=== PATIENT | female | born 1980 | race Caucasian/White ===

== ENCOUNTER → 2016-05-22 | Outpatient (CLI) | payer BC, OTHER ==
[2016-05-22 12:57] LABS: BASO % 0.5 % (0.0-1.0); EOS # 0.1 K/mm3 (0.0-0.50); EOS % 1.7 % (0.0-3.0); LARGE UNSTAINED CELL # 0.1 K/mm3 (0.0-0.4); LYMPH # 1.4 K/mm3 (1.5-4.5); LYMPH % 32.2 % (24.0-44.0); MEAN CORPUSCULAR HEMOGLOBIN 29.7 pg (27.0-33.0); MEAN CORPUSCULAR HGB CONC 34.8 g/dl (32.0-36.5); MEAN CORPUSCULAR VOLUME 85.6 fl (80.0-96.0); MONO # 0.2 K/mm3 (0.0-0.8); MONO % 4.4 % (0.0-5.0); NEUTROPHILS # 2.6 K/mm3 (1.8-7.7); NEUTROPHILS % 59.1 % (36.0-66.0); PLATELET COUNT, AUTOMATED 227 k/mm3 (150-450); RED CELL DISTRIBUTION WIDTH 12.1 % (11.5-14.5); WHITE BLOOD COUNT 4.3 K/mm3 (4.0-10.0)
[2016-05-22 13:57] LABS: ALBUMIN 4.1 GM/DL (3.2-5.2); ALBUMIN/GLOBULIN RATIO 1.41 (1.00-1.93); ALKALINE PHOSPHATASE 88 U/L (45-117); ALT/SGPT 26 U/L (12-78); ANION GAP 9 MEQ/L (8-16); AST/SGOT 12 U/L (15-37); BILIRUBIN,TOTAL 0.5 MG/DL (0.2-1.0); BLOOD UREA NITROGEN 8 MG/DL (7-18); CALCIUM LEVEL 9.2 MG/DL (8.5-10.1); CARBON DIOXIDE LEVEL 28 MEQ/L (21-32); CHLORIDE LEVEL 103 MEQ/L (98-107); CREATININE FOR GFR 0.73 MG/DL (0.55-1.02); GLOMERULAR FILTRATION RATE > 60.0 (>60); GLUCOSE, FASTING 78 MG/DL (70-105); POTASSIUM SERUM 3.9 MEQ/L (3.5-5.1); SODIUM LEVEL 140 MEQ/L (136-145)
== END | disposition home or self-care (01) ==
LOC: M LAB 12:20
PROVIDERS: ATTEND Family Medicine
DX: E66.09 Other obesity due to excess calories (principal); F41.1 Generalized anxiety disorder

== ENCOUNTER 2017-05-08 16:51 | Emergency (ER) | payer BC, OTHER ==
[2017-05-08] MEDS: MORPHINE 2 MG/ML 1ML SYRINGE IV (17:32)
[2017-05-08] MEDS: ONDANSETRON 4MG/2ML VIAL (J2405) IV (17:32)
[2017-05-08] MEDS: NS 1,000 ML IV (17:32)
[2017-05-08 17:46] LABS: ALBUMIN/GLOBULIN RATIO 1.08 (1.00-1.93); ALKALINE PHOSPHATASE 72 U/L (45-117); ALT/SGPT 22 U/L (12-78); ANION GAP 10 MEQ/L (8-16); AST/SGOT 13 U/L (7-37); BILIRUBIN,DIRECT 0.1 MG/DL (0.0-0.2); BILIRUBIN,TOTAL 0.6 MG/DL (0.2-1.0); BLOOD UREA NITROGEN 10 MG/DL (7-18); CARBON DIOXIDE LEVEL 25 MEQ/L (21-32); CHLORIDE LEVEL 104 MEQ/L (98-107); CREATININE FOR GFR 0.86 MG/DL (0.55-1.02); GLOMERULAR FILTRATION RATE > 60.0 (>60); GLUCOSE, FASTING 94 MG/DL (70-105); POTASSIUM SERUM 3.6 MEQ/L (3.5-5.1); SODIUM LEVEL 139 MEQ/L (136-145); TOTAL PROTEIN 7.7 GM/DL (6.4-8.2)
[2017-05-08 18:04] LABS: BASO % 0.5 % (0.0-1.0); EOS # 0.1 10^3/uL (0.0-0.50); EOS % 1.2 % (0.0-3.0); IMMATURE GRANULOCYTE % 0.4 % (0-0); LYMPH # 1.7 10^3/uL (1.5-4.5); LYMPH % 29.5 % (24.0-44.0); MEAN CORPUSCULAR HEMOGLOBIN 30.2 pg (27.0-33.0); MEAN CORPUSCULAR HGB CONC 35.3 g/dl (32.0-36.5); MEAN CORPUSCULAR VOLUME 85.6 fl (80.0-96.0); MONO # 0.3 10^3/uL (0.0-0.8); NEUTROPHILS # 3.5 10^3/uL (1.8-7.7); NEUTROPHILS % 62.4 % (36.0-66.0); PLATELET COUNT, AUTOMATED 315 10^3/uL (150-450); RED CELL DISTRIBUTION WIDTH 11.8 % (11.5-14.5); WHITE BLOOD COUNT 5.6 10^3/uL (4.0-10.0)
[2017-05-08 18:23] LABS: CALCIUM OXALATE CRYSTALS RFX SMALL; KETONE, URINE AUTO RFX TRACE mg/dL (NEGATIVE); LEUKOCYTE ESTERASE UR AUTO RFX NEGATIVE (NEGATIVE); MUCUS, URINE RFX SMALL (NEGATIVE); NITRITE, URINE AUTO RFX NEGATIVE (NEGATIVE); RBC, URINE AUTO RFX TNTC /HPF (0-3); SPECIFIC GRAVITY UR AUTO RFX 1.009 (1.002-1.035); SQUAM EPITHELIAL CELL UR AURFX 2 /HPF (0-6); WBC, URINE AUTO RFX 3 /HPF (0-3)
[2017-05-08] MEDS: OXYCODONE/APAP 5MG/325MG(BULK FOR ED) 1 TABLET PO (19:30)
[2017-05-08] MEDS: TAMSULOSIN 0.4 MG CAP PO (19:30)
[2017-05-08] MEDS: CIPROFLOXACIN 500 MG TAB PO (19:30)
== END 2017-05-08 19:34 | disposition home or self-care (01) ==
LOC: M ED 16:51
DX: N20.1 Calculus of ureter (principal); N39.0 Urinary tract infection, site not specified; N13.30 Unspecified hydronephrosis; F41.9 Anxiety disorder, unspecified; F33.9 Major depressive disorder, recurrent, unspecified; Z79.899 Other long term (current) drug therapy; Z87.442 Personal history of urinary calculi; Z87.448 Personal history of other diseases of urinary system
CPT/HCPCS: J2405

== ENCOUNTER 2017-05-16 08:24 | Day surgery (SDC) | payer BC, OTHER ==
[2017-05-16] MEDS: ONDANSETRON 4MG/2ML VIAL (J2405) IV (08:57)
[2017-05-16] MEDS: KETOROLAC 30 MG/ML VIAL (J1885) IV (08:57)
[2017-05-16 08:59] LABS: BASO % 0.5 % (0.0-1.0); EOS # 0.1 10^3/uL (0.0-0.50); EOS % 1.1 % (0.0-3.0); HEMATOCRIT 38.8 % (36.0-47.0); IMMATURE GRANULOCYTE % 0.3 % (0-0); LYMPH % 15.4 % (24.0-44.0); MEAN CORPUSCULAR HEMOGLOBIN 29.8 pg (27.0-33.0); MEAN CORPUSCULAR HGB CONC 33.5 g/dl (32.0-36.5); MONO # 0.5 10^3/uL (0.0-0.8); MONO % 8.3 % (0.0-5.0); NEUTROPHILS # 4.9 10^3/uL (1.8-7.7); NEUTROPHILS % 74.4 % (36.0-66.0); PLATELET COUNT, AUTOMATED 202 10^3/uL (150-450); RED BLOOD COUNT 4.36 10^6/uL (4.00-5.40); RED CELL DISTRIBUTION WIDTH 11.6 % (11.5-14.5); WHITE BLOOD COUNT 6.5 10^3/uL (4.0-10.0)
[2017-05-16 09:04] LABS: KETONE, URINE AUTO RFX NEGATIVE (NEGATIVE); LEUKOCYTE ESTERASE UR AUTO RFX NEGATIVE (NEGATIVE); MUCUS, URINE RFX SMALL (NEGATIVE); NITRITE, URINE AUTO RFX NEGATIVE (NEGATIVE); RBC, URINE AUTO RFX 6 /HPF (0-3); SPECIFIC GRAVITY UR AUTO RFX 1.023 (1.002-1.035); SQUAM EPITHELIAL CELL UR AURFX 5 /HPF (0-6); WBC, URINE AUTO RFX 2 /HPF (0-3)
[2017-05-16 09:15] LABS: CONTROL LINE HCG INT CTR LINE PRESENT; HCG, SERUM QUALITATIVE NEGATIVE (NEGATIVE)
[2017-05-16 09:18] LABS: ALBUMIN 4.1 GM/DL (3.2-5.2); ALBUMIN/GLOBULIN RATIO 1.17 (1.00-1.93); ALKALINE PHOSPHATASE 69 U/L (45-117); ALT/SGPT 21 U/L (12-78); ANION GAP 8 MEQ/L (8-16); AST/SGOT 14 U/L (7-37); BILIRUBIN,TOTAL 0.4 MG/DL (0.2-1.0); BLOOD UREA NITROGEN 13 MG/DL (7-18); CALCIUM LEVEL 8.9 MG/DL (8.5-10.1); CARBON DIOXIDE LEVEL 29 MEQ/L (21-32); CHLORIDE LEVEL 101 MEQ/L (98-107); CREATININE FOR GFR 1.31 MG/DL (0.55-1.02); GLOMERULAR FILTRATION RATE 49.5 (>60); GLUCOSE, FASTING 114 MG/DL (70-105); POTASSIUM SERUM 3.8 MEQ/L (3.5-5.1); SODIUM LEVEL 138 MEQ/L (136-145); TOTAL PROTEIN 7.6 GM/DL (6.4-8.2)
[2017-05-16] MEDS ORDERED: LIDOCAINE 2% INJ 100 MG/5 ML SDV (FOR ANES.) As Ordered (14:32)
[2017-05-16] MEDS ORDERED: fentaNYL 100 MCG/2 ML INJECTION (J3010) As Ordered (14:32)
[2017-05-16] MEDS ORDERED: METOCLOPRAMIDE INJ 10MG/2ML VIAL (J2765) As Ordered (14:32)
[2017-05-16] MEDS ORDERED: ONDANSETRON 4MG/2ML VIAL (J2405) As Ordered (14:32)
[2017-05-16] MEDS ORDERED: MIDAZOLAM INJ 2 MG/2 ML VIAL (J2250) As Ordered (14:32)
[2017-05-16] MEDS ORDERED: PROPOFOL 200 MG/20 ML VIAL As Ordered (14:32)
[2017-05-16] MEDS: LevoFLOXacin(LEVAQUIN)500 MG/100 ML BAG (J1956) As Ordered (14:40)
[2017-05-16] MEDS: CONRAY-60 60% 50ML VIAL (Q9961) As Ordered (14:40)
[2017-05-16] MEDS ORDERED: ANEXSIA, NORCO 7.5MG/325MG TABLET(HYDROCODONE/APAP) PO (15:15)
[2017-05-16] MEDS ORDERED: ONDANSETRON 4MG/2ML VIAL (J2405) IV (15:30)
[2017-05-16] MEDS ORDERED: MEPERIDINE INJ 25 MG/ML VIAL (J2175) IV (15:30)
[2017-05-16] MEDS ORDERED: METOCLOPRAMIDE INJ 10MG/2ML VIAL (J2765) IV (15:30)
[2017-05-16] MEDS ORDERED: fentaNYL 100 MCG/2 ML INJECTION (J3010) IV (15:30)
[2017-05-16] MEDS: LR 1,000 ML IV (15:30)
[2017-05-16] MEDS: PERCOCET 5MG/325MG TAB PO (15:34)
[2017-05-16] MEDS: oxyBUTYnin 5 MG TAB PO (15:34)
[2017-05-16] MEDS ORDERED: BACTRIM 160MG/800MG DS TAB PO (21:00)
== END 2017-05-16 17:20 | disposition home or self-care (01) ==
LOC: M ED 08:24 → M SDC 12:20 → M MS5PR 16:02 → M SDC 17:20
DX: N20.1 Calculus of ureter (principal); I10 Essential (primary) hypertension; E66.9 Obesity, unspecified
CPT/HCPCS: 52352

== ENCOUNTER → 2017-05-25 | Outpatient (REF) | payer OTHER ==
[2017-05-25 19:07] LABS: APPEARANCE, URINE HAZY (CLEAR); BACTERIA, URINE AUTO 1+ (NEGATIVE); BILIRUBIN, URINE AUTO NEGATIVE (NEGATIVE); BLOOD, URINE BLOOD 2+ (NEGATIVE); CALCIUM OXALATE CRYSTALS SMALL; COLOR, URINE YELLOW (YELLOW); GLUCOSE, URINE (UA) AUTO NEGATIVE (NEGATIVE); KETONE, URINE AUTO NEGATIVE (NEGATIVE); LEUKOCYTE ESTERASE, URINE AUTO TRACE (NEGATIVE); MUCUS, URINE SMALL (NEGATIVE); NITRITE, URINE AUTO NEGATIVE (NEGATIVE); PROTEIN, URINE AUTO NEGATIVE (NEGATIVE); RBC, URINE AUTO 18 /HPF (0-3); SPECIFIC GRAVITY URINE AUTO 1.018 (1.002-1.035); SQUAMOUS EPITHELIAL CELL UR AU 2 /HPF (0-6); UROBILINOGEN, URINE AUTO 0.2 mg/dL (0.0-2.0); WBC, URINE AUTO 7 /HPF (0-3)
== END ==
LOC: M SMT 17:12
DX: N20.0 Calculus of kidney (principal)

== ENCOUNTER → 2017-05-26 | Outpatient (CLI) | payer OTHER, BC ==
[2017-05-26 20:01] LABS: HEMATOCRIT 38.1 % (36.0-47.0); HEMOGLOBIN 12.9 g/dl (12.0-16.0); MEAN CORPUSCULAR HEMOGLOBIN 29.9 pg (27.0-33.0); MEAN CORPUSCULAR HGB CONC 33.9 g/dl (32.0-36.5); MEAN CORPUSCULAR VOLUME 88.4 fl (80.0-96.0); PLATELET COUNT, AUTOMATED 269 10^3/uL (150-450); RED BLOOD COUNT 4.31 10^6/uL (4.00-5.40); RED CELL DISTRIBUTION WIDTH 11.7 % (11.5-14.5); WHITE BLOOD COUNT 5.7 10^3/uL (4.0-10.0)
[2017-05-26 20:07] LABS: ANION GAP 8 MEQ/L (8-16); BLOOD UREA NITROGEN 10 MG/DL (7-18); CALCIUM LEVEL 8.9 MG/DL (8.5-10.1); CARBON DIOXIDE LEVEL 26 MEQ/L (21-32); CHLORIDE LEVEL 106 MEQ/L (98-107); CREATININE FOR GFR 0.71 MG/DL (0.55-1.02); GLOMERULAR FILTRATION RATE > 60.0 (>60); GLUCOSE, FASTING 81 MG/DL (70-105); POTASSIUM SERUM 4.2 MEQ/L (3.5-5.1); SODIUM LEVEL 140 MEQ/L (136-145)
[2017-05-26 20:14] LABS: INR 0.97; PARTIAL THROMBOPLASTIN TIME 25.7 SECONDS (26.8-37.9)
== END ==
LOC: M WUC 16:14
DX: N20.0 Calculus of kidney (principal)
CPT/HCPCS: 80048

== ENCOUNTER 2017-05-27 09:57 | Day surgery (SDC) | payer BC, OTHER ==
[2017-05-27] MEDS ORDERED: MIDAZOLAM INJ 2 MG/2 ML VIAL (J2250) As Ordered (09:58)
[2017-05-27] MEDS ORDERED: LIDOCAINE 2% INJ 100 MG/5 ML SDV (FOR ANES.) As Ordered (09:58)
[2017-05-27] MEDS ORDERED: fentaNYL 100 MCG/2 ML INJECTION (J3010) As Ordered ×2 (09:58→14:34)
[2017-05-27] MEDS ORDERED: PROPOFOL 200 MG/20 ML VIAL As Ordered (09:58)
[2017-05-27] MEDS: LR 1,000 ML IV (11:24)
[2017-05-27 12:08] LABS: CONTROL LINE UCG INT CTR LINE PRESENT; URINE PREG TEST NEGATIVE (NEGATIVE)
== END 2017-05-27 14:53 | disposition home or self-care (01) ==
LOC: M SDC 14:53
DX: N20.0 Calculus of kidney (principal); F41.9 Anxiety disorder, unspecified; F32.9 Major depressive disorder, single episode, unspecified; K21.9 Gastro-esophageal reflux disease without esophagitis; R06.83 Snoring; Z79.899 Other long term (current) drug therapy
CPT/HCPCS: 50590

== ENCOUNTER 2018-06-12 19:36 | Inpatient (IN) | payer BC, OTHER ==
[~2018-06-12] VITALS: Ht 149.9 cm; Wt 78.8 kg
[~2018-06-12 19:36] MED LIST: AMBI5TAB PO; CIPR-249 PO; FLOM0.4C39 PO; FLUO20CA19 PO; HYDR-3716 PO; OXYB5TAB10 PO; PERC5TAB12 PO; PROP40TA62 PO; PROZ20CA11 PO; SULF1TAB93 PO; ZOLP5TAB PO
[2018-06-12] MEDS ORDERED: CHARCOAL ACTIVATED LIQUID 25 GM/120 ML BTL As Ordered ONE (19:40)
[2018-06-12] MEDS ORDERED: NS 1,000 ML IV ONE (19:45)
[2018-06-12] MEDS ORDERED: CHARCOAL ACTIVATED LIQUID 25 GM/120 ML BTL PO ONE (19:45)
[2018-06-12] MEDS ORDERED: BUPR150T3 PO (19:48)
[2018-06-12 19:58] LABS: VENOUS BASE EXCESS -0.4 (-2.0-2.0); VENOUS HCO3 23.3 MEQ/L (23.0-27.0); VENOUS PARTIAL PRESSURE CO2 35.9 mmHg (38.0-50.0); VENOUS PARTIAL PRESSURE O2 88.5 mmHg (30.0-50.0); VENOUS PH 7.431 UNITS (7.330-7.430); VENOUS STANDARD HCO3 24.1 MEQ/L; VENOUS TOTAL CO2 24.4 MEQ/L (24.0-28.0)
[2018-06-12 20:05] LABS: BASO % 0.4 % (0.0-1.0); EOS # 0.1 10^3/uL (0.0-0.50); EOS % 1.2 % (0.0-3.0); HEMATOCRIT 40.4 % (36.0-47.0); HEMOGLOBIN 14.1 g/dl (12.0-15.5); LYMPH # 1.6 10^3/uL (1.5-4.5); LYMPH % 27.5 % (24.0-44.0); MEAN CORPUSCULAR HGB CONC 34.9 g/dl (32.0-36.5); MEAN CORPUSCULAR VOLUME 88.8 fl (80.0-96.0); MONO # 0.5 10^3/uL (0.0-0.8); MONO % 8.1 % (0.0-5.0); NEUTROPHILS # 3.6 10^3/uL (1.8-7.7); NEUTROPHILS % 62.4 % (36.0-66.0); PLATELET COUNT, AUTOMATED 241 10^3/uL (150-450); RED BLOOD COUNT 4.55 10^6/uL (4.00-5.40); WHITE BLOOD COUNT 5.7 10^3/uL (4.0-10.0)
[2018-06-12 20:18] LABS: HCG, SERUM QUALITATIVE NEGATIVE (NEGATIVE)
[2018-06-12 20:28] LABS: OSMOLALITY SERUM 285 MOSM/KG (275-295)
[2018-06-12 20:34] LABS: ACETAMINOPHEN LEVEL 9.4 UG/ML (10.0-30.0); ALBUMIN 4.1 GM/DL (3.2-5.2); ALT/SGPT 31 U/L (12-78); BILIRUBIN,DIRECT 0.1 MG/DL (0.0-0.2); BILIRUBIN,TOTAL 0.5 MG/DL (0.2-1.0); BLOOD UREA NITROGEN 14 MG/DL (7-18); CALCIUM LEVEL 8.9 MG/DL (8.5-10.1); CARBON DIOXIDE LEVEL 23 MEQ/L (21-32); CHLORIDE LEVEL 102 MEQ/L (98-107); CPK CREATINE PHOSPHOKINASE 45 U/L (26-192); CREATININE FOR GFR 0.88 MG/DL (0.55-1.30); ETHYL ALCOHOL (ETHANOL) < 0.003 % (0.000-0.010); GLOMERULAR FILTRATION RATE > 60.0 (>60); GLUCOSE, FASTING 83 MG/DL (70-100); POTASSIUM SERUM 3.6 MEQ/L (3.5-5.1); SALICYLATE LEVEL < 1.7 MG/DL (5.0-30.0); SODIUM LEVEL 137 MEQ/L (136-145)
[2018-06-12 21:49] LABS: AMPHETAMINES LEVEL URINE NEGATIVE (NEGATIVE); BARBITURATES URINE NEGATIVE (NEGATIVE); BENZODIAZEPINES URINE POSITIVE (NEGATIVE); CANNABINOIDS URINE NEGATIVE (NEGATIVE); COCAINE METABOLITE URINE NEGATIVE (NEGATIVE); METHADONE URINE NEGATIVE (NEGATIVE); OPIATES URINE NEGATIVE (NEGATIVE); PHENCYCLIDINE URINE NEGATIVE (NEGATIVE)
[2018-06-12 23:20] LABS: DIGOXIN LEVEL 0.1 NG/ML (0.5-2.0)
[2018-06-13] MEDS ORDERED: MOM 30ML SUSPENSION UDC PO PRN (13:00)
[2018-06-13] MEDS ORDERED: MAALOX 30 ML SUSP *UDC PO PRN (13:00)
[2018-06-13] MEDS ORDERED: ACETAMINOPHEN TAB 650MG DOSE (2X325MG) PO PRN (13:00)
[2018-06-13 13:42] VITALS: BP 132/76
[2018-06-13] MEDS ORDERED: clonazePAM 1 MG TAB PO PRN (15:00)
[2018-06-13] MEDS: PROPRANOLOL 20 MG TAB PO SCH (16:36)
[2018-06-13 18:00] VITALS: BP 129/85
--- NOTE | 2018-06-13 19:44 | ECGEPIP ---
Stationary ECG Study [facility] - ED Test Date: 2018-06-12 Pat Name: SANTHOSH BEE Department: Room: - Gender: F Accounting Manager Assistant Controller: [facility] : 1980 Requested By: CRISTIANA Pham Order Number: [id number] Reading MD: Joaquin Gutierres Measurements Intervals [place] Rate: 104 P: 1 IL: 136 QRS: 34 QRSD: 93 T: -16 QT: 353 QTc: 466 Interpretive Statements SINUS TACHYCARDIA NONSPECIFIC ST & T-WAVE ABNORMALITY DELAYED R WAVE PROGRESSION PROLONGED QTC ABNORMAL RHYTHM ECG NO OLD ECG FOR COMPARISON Electronically Signed On 06-13-2018 19:43:51 EST by Joaquin Gutierres
[2018-06-13] MEDS ORDERED: FLUoxetine 20 MG CAP PO SCH (21:00)
[2018-06-13] MEDS: buPROPion (WELLBUTRIN SR) 100 MG SR TAB PO SCH (21:40)
[2018-06-13] MEDS: traZODone 50 MG TAB PO PRN (21:40)
[2018-06-14 06:33] VITALS: BP 111/63
[2018-06-14] MEDS ORDERED: buPROPion **XL** TABLET 150MG (WELLBUTRIN XL) PO SCH (09:00)
[2018-06-14] MEDS: buPROPion (WELLBUTRIN SR) 100 MG SR TAB PO SCH (09:25)
[2018-06-14] MEDS: PROPRANOLOL 20 MG TAB PO SCH (09:27)
--- NOTE | 2018-06-14 10:13 | HPEPDOC ---
[facility] Medical History & Physical Date of Admission Jun 13, 2018 History and Physical PCP: Dr Franklin ATTENDING: Dr. Shree Montesinos HPI: 37yoF admitted to [facility] for unspecified depressive disorder, being medically examined today. The patient had apparently overdosed with 15 1 mg tablets of lorazepam and 25 mg tablets of zolpidem. Poison control was consulted, the patient was medically stabilized in the emergency department and transferred to [facility]. No acute medical complaints today. Patient reports she takes propranolol for anxiety. Denies any fevers, chills, weakness, fatigue, [place], CP, SOB, cough, palpitations, abdominal pain, N/V/D or changes in bowel or bladder habits. PAST MEDICAL HISTORY HISTORY OF KIDNEY STONES. Following with [facility] Urology. urinary tract infection Anxiety Pression SURGICAL HISTORY X2 2002, 2012 STENT KIDNEY LEFT SIDE 05/16/17 SOCHX: Resides in: [facility] Marital Status: Kids:2 Employment: Student counselor Tobacco use: denies ETOH: 2-3 per year Illicit Drugs: Denies IV Drug Use: Denies Tattoos done unprofessionally: Denies FAMHX: Mother: Alive, unknown Father: Alive, HTN, substance use Siblings: 1 brother Alive, substance use Children: Alive, well Unexpected deaths due to medical reasons: None. ROS: As noted in HPI, otherwise 11pt ROS of systems reviewed and remarkable only for LMP 06/06/18. PE: GEN: 37yoF, appears stated age. Well-nourished, well developed. No acute distress. Alert and oriented x 3. Pleasant, interactive. HEENT: Normocephalic, atraumatic. Pupils are equal, round, and reactive to light. Extraocular movements are intact. No nystagmus appreciated. Sclera are nonicteric. Conjunctiva without injection. Nose midline. Nasal turbinates without bogginess. EACs both patent BL. TMs both visualized and downey with good cone of light, no bulging or erythema. No facial asymmetry. Moist mucous membranes. Dentition fair. Pharynx pink and moist, no cobblestoning. Neck s upple, trachea midline. No lymphadenopathy or thyromegaly appreciated. CHEST: Regular rate and rhythm, +S1, +S2 LUNGS: Clear to auscultation bilaterally. No wheezes, rales, or rhonchi. Breathing appears symmetric and easy. Patient is speaking in full sentences. No accessory muscle use. ABD: Round, soft, non-tender, non-distended. +Bowel sounds throughout. No rebound or guarding. No costovertebral angle tenderness. EXT: Pulses 2+ bilaterally dorsalis pedis and radial. No lower extremity edema appreciated. SKIN: [place], dry, warm. Capillary refill <2sec. No rashes. NEURO: Alert and oriented x 3. Cranial nerves III-XII are intact. No focal deficits appreciated. EKG: SINUS TACHYCARDIA NONSPECIFIC ST & T-WAVE ABNORMALITY DELAYED R WAVE PROGRESSION PROLONGED QTC ABNORMAL RHYTHM ECG NO OLD ECG FOR COMPARISON Electronically Signed On 06-13-2018 19:43:51 EST by Joaquin Gutierres A&P: 37yoF admitted to [facility] for unspecified depressive disorder, 1. Psych. Plan per Psychiatry. EKG on file. 2. Prolonged QT. QTc 466. Caution advised with medications which may prolong QT. Recheck EKG today. Monitor. 3. Follow up. No Primary Care Provider. Will attempt to establish PCP on discharge. 4. History of kidney stones. Continue outpatient follow-up with [facility] urology as scheduled. 5. History of UTI. UA 06/12/18 unremarkable. 6. Staff member Tessy ERNST present throughout exam. Vital Signs Vital Signs Date Time Temp Pulse Resp B/P (MAP) Pulse Ox O2 Delivery O2 Flow Rate FiO2 06/14/18 09:27 89 136/77 06/14/18 06:33 97.0 12 06/13/18 12:00 98 Room Air Laboratory Data Labs 24H Item Value Date Time White Blood Count 5.7 10^3/uL 06/12/181948 Red Blood Count 4.55 10^6/uL 06/12/181948 Hemoglobin 14.1 g/dl 06/12/181948 Hematocrit 40.4 % 06/12/181948 Mean Corpuscular Volume 88.8 fl 06/12/181948 Mean Corpuscular Hemoglobin 31.0 pg 06/12/181948 Mean Corpuscular Hemoglobin Concent 34.9 g/dl 06/12/181948 Red Cell Distribution Width 11.8 % 06/12/181948 Platelet Count 241 10^3/uL 06/12/181948 Sodium Level 137 MEQ/L 06/12/181948 Potassium Level 3.6 MEQ/L 06/12/181948 Chloride Level 102 MEQ/L 06/12/181948 Carbon Dioxide Level 23 MEQ/L 06/12/181948 Anion Gap 12 MEQ/L 06/12/181948 Blood Urea Nitrogen 14 MG/DL 06/12/181948 Creatinine 0.88 MG/DL 06/12/181948 Glomerular Filtration Rate > 60.0 06/12/181948 Fasting Glucose 83 MG/DL 06/12/181948 Osmolality 285 MOSM/KG 06/12/181948 Lactic Acid Level 0.9 MMOL/L 06/12/181949 Calcium Level 8.9 MG/DL 06/12/181948 Total Bilirubin 0.5 MG/DL 06/12/181948 Direct Bilirubin 0.1 MG/DL 06/12/181948 Aspartate Amino Transf (AST/SGOT) 21 U/L 06/12/181948 Alanine Aminotransferase (ALT/SGPT) 31 U/L 06/12/181948 Alkaline Phosphatase 77 U/L 06/12/181948 Total Creatine Kinase 45 U/L 06/12/181948 Total Protein 7.0 GM/DL 06/12/181948 Albumin 4.1 GM/DL 06/12/181948 Albumin/Globulin Ratio 1.41 06/12/181948 Thyroid Stimulating Hormone (TSH) 2.480 uIU/ML 06/12/181948 Human Chorionic Gonadotropin, Qual NEGATIVE 06/12/181948 Digoxin Level 0.1 NG/ML L 06/12/181948 Salicylates Level < 1.7 MG/DL L 06/12/181948 Urine Opiates Screen NEGATIVE 06/12/182117 Urine Methadone Screen NEGATIVE 06/12/182117 Acetaminophen Level 3.9 UG/ML L 06/12/187 Urine Barbiturates Screen NEGATIVE 06/12/182117 Urine Phencyclidine Screen NEGATIVE 06/12/182117 Urine Amphetamines Screen NEGATIVE 06/12/182117 Urine Benzodiazepines Screen POSITIVE H 06/12/182117 Urine Cocaine Metabolite Screen NEGATIVE 06/12/182117 Urine Cannabinoids Screen NEGATIVE 06/12/182117 Ethyl Alcohol Level < 0.003 % 06/12/181948 Home Medications Scheduled Bupropion Hcl (Bupropion HCl Xl) 150 Mg Tab, 150 MG PO DAILY Fluoxetine HCl (Prozac) 20 Mg Cap, 60 MG PO DAILY Propranolol HCl (Propranolol HCl) 40 Mg Tab, 40 MG PO DAILY Zolpidem Tartrate (Ambien) 5 Mg Tab, 5 MG PO QHS Allergies Coded Allergies: No Known Allergies (Verified , 05/27/17) Ruth Lira Jun 14, 2018 10:13
[2018-06-14] MEDS: SERTRALINE HCL 50 MG TAB PO SCH (15:09)
[2018-06-14 18:00] VITALS: BP 123/58
[2018-06-14] MEDS: traZODone 50 MG TAB PO PRN (21:15)
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
[2018-06-15 06:11] VITALS: BP 110/70
--- NOTE | 2018-06-15 08:41 | ECGEPIP ---
Stationary ECG Study [facility] Test Date: 2018-06-14 Pat Name: SANTHOSH BEE Department: Room: [place] [address] Gender: F Certified Registered Nurse Practitioner: KARI : 1980 Requested By: Ruth Lira Order Number: [id number] Reading MD: Ron Marie Measurements Intervals [place] Rate: 65 P: 32 TX: 170 QRS: 48 QRSD: 89 T: 48 QT: 420 QTc: 438 Interpretive Statements SINUS RHYTHM MINIMAL NON-SPECIFIC REPOLARIZATION ABNORMALITY SINCE 06/12/18 STT ABNORMALITIES ARE LESS PROMINENT AND QT INTERVAL IS NOW NORMAL Electronically Signed On 06-15-2018 8:41:07 EST by Ron Marie
[2018-06-15] MEDS ORDERED: buPROPion 75 MG TAB PO SCH (09:00)
[2018-06-15] MEDS: SERTRALINE HCL 50 MG TAB PO SCH (09:30)
[2018-06-15] MEDS: PROPRANOLOL 10 MG TAB PO SCH ×2 (09:32→15:13)
[2018-06-15] MEDS ORDERED: SERT25TA PO (14:06)
[2018-06-15] MEDS ORDERED: ARIP5TA PO (14:06)
[2018-06-15] MEDS ORDERED: BUPR75TA5 PO (14:06)
[2018-06-15] MEDS ORDERED: TRAZO50TA PO (14:06)
[2018-06-15] MEDS ORDERED: PROP10TAB PO ×2 (14:06)
--- NOTE | 2018-06-15 14:19 | MHIPNPDOC ---
[facility] Progress Note Progress Note DATE OF SERVICE: 06/15/18 HISTORY: History of Present Illness HISTORY OF THE PRESENT ILLNESS: Patient is a 37 -year-old , female, who, as per ED report: "Reason for Referral * PT intentionally overdosed to kill herself Chief Complaint PT states that she has been for 18 years and that she is currently . moved out about 4 months ago and they attempt to coparent and stay civil. and PT's best friend are here supporting PT. PT states that she had been dating a man for about 30 days and he had come up from [place] Wednesday night to spend the weekend. Wednesday the man stated he did not feel well and abruptly left around 4p but PT feels he lied just to elave "he got what he wanted" He is now not returning her messages. PT states this man made her laugh even thru text messages and she felt love for him. She admits to taking 4 of her medications "to see what would happen" and she passed out. Wednesday morning she went to breakfast and was thinking of killing herself the enitre time. PT's children were their father for the weekend as she wouldn't allow the man she was seeing to meet them as it was to soon. PT went home and overdosed with 15 1mg lorazepam and 2 5mg Zolpidem.PT's became worried when he was unable to get PT to respond to his calls and texts as she is typically easily accessable so he asked her best friend to check on her. PT did answer her friend's call and she told her what she did. Her friend went to PT's home with ehr son who is an EMT and they immediately called 911 and PT could barely walk. PT denies memory of this or how she got to the ED. PT's friend is staying in the ED. When PT was asked if she had tried to kill herself "I wasn't trying to stay alive" PT is currently concerned about her 15 year old son who is struggles with the seperation and that in September it will be the second anniversary of her grandmother's passing and that she had passed on PT's birthday. She states she is not suicidal in this moment but she will be again "eventually". She then stated she did try and kill herself and is open to admission." VITAL SIGNS: See below. NEW TEST RESULTS: See below CURRENT MEDICATIONS: See below. MENTAL STATUS EXAMINATION: General Appearance: well groomed, appears stated age, hospital scubs/clothing Build: overweight Demeanor: average Eye Contact: average Activity: average Behavior: cooperative, pleasant Speech: clear, spontaneous, reg/rate,rhythm,volume Mood: depressed Affect: full, appropriate, congruent Thought Process: logical/linear Thought Content (Delusions): none reported Thought Content (Other): none reported Thought Content (Aggressive): none reported Perception (Hallucinations): none reported Perception (Other): none reported Cognition (Impairment of): none reported Cognition(Intelligence Est.): average Oriented: Awake, Alert, Oriented times three Insight: fair Judgment: Poor Psychosis: Denies Diagnoses 1. Major Depressive disorder, recurrent, severe 2. Generalized Anxiety disorder ASSESSMENT: Patient reports she is not feeling suicidal, homicidal or psychotic. 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 She says she knows she will have to apologize to them and try to explain what happened without going into details that would not be appropriate to discuss with her children. she wants to continue her college educaton, she wnts to go to the beach in the summer and get a rodriguez, she wants to enjoy life and the company of her children, now that she almost lost her life. She said it was scary to be 'almost there", she says she is going to go to therapy because she needs to feel validated. She says that one of the things that really helped her being at [facility] was being disconnected from everyone and having the time to reflect about her own life and the chain of events that lead to this situation. she says her ex visited her last night and she was able to talk to him a nd let a lot of things out of her chest, and she felt that he was listening to her, something that he didn't do for years while living together. Her ex is one of the persons that she has mentioned as being supportive and her friend Lay. If she gets discharged, because she wants to leave, one of these two persons will have to be responsible for the medications that she takes, they will have to hold on to them and supervise her. she will be going to therapy at [facility] and she is hopeful she will feel validated and understood while going there. MANAGEMENT PLAN: Sertraline 75 mgs PO daily Wellbutrin 37.5 mgs po daily Abilify 5 mgs PO daily Propranolol 10 mgs PO QHS Propranolol 10 mgs PO TID TIME SPENT: 45 minutes. Vital Signs Vital Signs Date Time Temp Pulse Resp B/P (MAP) Pulse Ox O2 Delivery O2 Flow Rate FiO2 06/15/18 09:32 82 129/75 06/15/18 07:57 Room Air 06/15/18 06:11 99.1 14 06/13/18 12:00 98 Current Medications Current Medications Acetaminophen (Tylenol Tab) 650 mg Q6HP PRN PO HEADACHE or DISCOMFORT; Start 06/13/18 at 13:00 Al Hydrox/Mg Hydrox/Simethicone (Mylanta) 30 ml Q4HP PRN PO HEARTBURN/INDIGESTION; Start 06/13/18 at 13:00 Aripiprazole (AbiLIFY) 5 mg QHS PO Last administered on 06/14/18at 21:15; Start 06/14/18 at 21:00 Bupropion HCl (Wellbutrin Sr) 100 mg BID PO Last administered on 06/14/18at 09:25; Start 06/13/18 at 21:00; Stop 06/14/18 at 12:58; Status DC Bupropion HCl (Wellbutrin Xl) 100 mg DAILY PO ; Start 06/14/18 at 09:00; Status UNV Bupropion HCl (Wellbutrin) 75 mg QAM PO Last administered on 06/15/18at 09:32; Start 06/15/18 at 09:00 Clonazepam (KlonoPIN) 1 mg TIDP PRN PO ANXIETY/AGITATION; Start 06/13/18 at 15:00 Fluoxetine HCl (PROzac) 20 mg QHS PO Last administered on 06/13/18at 21:40; Start 06/13/18 at 21:00; Stop 06/14/18 at 13:03; Status DC Magnesium Hydroxide (Milk Of Magnesia) 30 ml DAILYPRN PRN PO CONSTIPATION; Start 06/13/18 at 13:00 Propranolol HCl (Inderal) 10 mg QHS PO ; Start 06/15/18 at 21:00 Propranolol HCl (Inderal) 10 mg TID PO Last administered on 06/15/18 09:32; Start 06/15/18 at 09:00 Propranolol HCl (Inderal) 40 mg DAILY PO Last administered on 06/14/18 09:27; Start 06/13/18 at 09:00; Stop 06/14/18 at 13:01; Status DC Sertraline HCl (Zoloft) 50 mg QAM PO Last administered on 06/15/18at 09:30; Start 06/14/18 at 15:00 Trazodone HCl (Desyrel) 50 mg QHSP PRN PO INSOMNIA Last administered on 06/14/18 21:15; Start 06/13/18 at 13:00 Allergies Coded Allergies: No Known Allergies (Verified , 05/27/17) ARVIN LOMBARDI MD Jun 15, 2018 12:20
[2018-06-15 15:13] VITALS: BP 117/70
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
[2018-06-15] MEDS ORDERED: PROPRANOLOL 10 MG TAB PO SCH (21:00)
[2018-06-16] MEDS ORDERED: buPROPion 75 MG TAB PO SCH (09:00)
[2018-06-16] MEDS ORDERED: SERTRALINE HCL 25 MG TABLET PO SCH (09:00)
== END 2018-06-15 16:05 | disposition home or self-care (01) | DRG 885 ==
LOC: M ED 19:36 → M ED INP 06-13 12:57 → M PSY 06-13 13:30
PROVIDERS: ADMIT Psychiatry & Neurology Psychiatry; ATTEND Psychiatry & Neurology Psychiatry
DX: F33.2 Major depressive disorder, recurrent severe without psychotic features (principal); F41.1 Generalized anxiety disorder; Z79.899 Other long term (current) drug therapy

== ENCOUNTER → 2018-07-25 | Outpatient (REF) | payer OTHER ==
[~2018-07-25] MED LIST changes: +ARIP5TA PO; +BUPR150T3 PO; +BUPR75TA5 PO; +PROP10TAB PO; +SERT25TA PO; +TRAZO50TA PO
== END ==
LOC: M LAB REF 12:18
PROVIDERS: ATTEND Physician Assistant
DX: J06.9 Acute upper respiratory infection, unspecified (principal)

== ENCOUNTER → 2018-11-09 | Outpatient (REF) ==
[~2018-11-09] MED LIST changes: +ARIP1TAB6 PO; -ARIP5TA PO; +PROP10TA55 PO; -PROP10TAB PO; -SERT25TA PO; +SERT25TA85 PO; +TRAZ1TAB10 PO; -TRAZO50TA PO
[2018-11-09 14:17] LABS: RUBELLA IgG QUALITATIVE IMMUNE (IMMUNE)
== END ==
LOC: M LAB 12:19
PROVIDERS: ATTEND Nurse Practitioner Adult Health
DX: Z00.00 Encounter for general adult medical examination without abnormal findings (principal)

== ENCOUNTER 2019-07-22 13:21 | Emergency (ER) | payer OTHER, SELFPAY ==
[~2019-07-22] VITALS: Ht 149.9 cm; Wt 83.0 kg
[~2019-07-22 13:21] MED LIST changes: -FLUO20CA19 PO; +FLUO20CA22 PO
[2019-07-22] MEDS ORDERED: ACETAMINOPHEN 325 MG TAB PO ONE (14:45)
[2019-07-22 16:24] VITALS: BP 123/73
--- NOTE | 2019-07-23 10:28 | REP ---
REASON: Trauma. PRIORS: None. Limited plain radiographic evaluation of the facial bones shows no evidence of an acute fracture. The paranasal sinuses are clear. Unreviewed
== END 2019-07-22 16:26 | disposition home or self-care (01) ==
LOC: M ED 13:21
DX: S05.11XA Contusion of eyeball and orbital tissues, right eye, initial encounter (principal); Y04.8XXA Assault by other bodily force, initial encounter; Y92.238 Other place in hospital as the place of occurrence of the external cause; Y93.F9 Activity, other caregiving; Y99.0 Civilian activity done for income or pay; Z79.899 Other long term (current) drug therapy

== ENCOUNTER 2020-07-03 06:25 | Emergency (ER) | payer OTHER, SELFPAY ==
[~2020-07-03] VITALS: Ht 149.9 cm; Wt 61.4 kg
[~2020-07-03 06:25] MED LIST changes: +BUPR150T12 PO; -BUPR150T3 PO
--- OUTSIDE RECORDS SUMMARY | 2020-07-03 06:32 | CCD | Continuity of Care Document ---
Author Author Denise PATTEN [place] Organization Unknown Address [address] [place] [address] 6 [address] [place] [address] Phone [phone] Care Team Providers Care Dentistry Professor Name Role Phone Rosina Quinones D.O. AUTM Amalia Chester DO AUTM [phone] Problems Active Problems Provider Date Moderate recurrent major depression Leeanne Fong Onset: 12/28/2016 Tachycardia Rosina Quinones D.O. Onset: 2016 Vitamin D deficiency Rosina Quinones D.O. Onset: 06/22 Psychophysiologic insomnia Rosina Quinones D.O. Onset: 06/22/2016 Body mass index 30+ - obesity Rosina Quinones D.O. Ons et: 05/22/2016 Obesity Rosina Quinones D.O. Onset: 2016 Generalized anxiety disorder Rosina Quinones D.O. Onse t: 05/22/2016 Social History Type Date Description Comments Sex Unknown ETOH Use Occasionally consumes alcohol Tobacco Use Start: Unknown Patient has never smoked Recreational Drug Use Denies Drug Use Smoking Status Reviewed: 04/24/20 Patient has never smoked Exercise Type/Frequency Does not exercise Sun Exposure Uses sunscreen Seat Belt/Car Seat Always uses seat belt Allergies, Adverse Reactions, Alerts Description No Known Drug Allergies Medications Active Medications SIG Qnty Indications Ordering Provide r Date Clonazepam 0.5mg Tablets one tablet by mouth twice daily as needed for anxiety istop [id number] 60tabs F41 .1 Rosina Quinones D.O. 04/24/2020 Bupropion Hydrochloride ER (XL) 150mg Tablets ER 24HR 1 by mouth every day 30tabs F41.1 Rosina Quinones D.O. 01/30/2020 History Medications Buspirone HCL 10mg Tablets take 1 tablet by mouth twice a day as needed 60tabs F41.1 Rosina shaikh D.O. 02/29/2020 - 04/24/2020 No Active Medications Unknown - 01/30/2020 Immunizations CPT Code Status Date Vaccine Lot # [id number] Given 03/08/2018 TB Intradermal Test [id number] Vital Signs Date Vital Result Comment 04/24/2020 8:02am BP Systolic 118 mmHg BP Diastolic 70 mmHg Height 60 inches 5'0" Weight 141.38 lb BMI (Body Mass Index) 27.6 kg/m2 Heart Rate 90 /min Respiratory Rate 187 /min Body Temperature 98.2 F O2 % BldC Oximetry 99 % [place] Body Weight 100 lb 02/29/2020 2:50pm BP Systolic 115 mmHg BP Diastolic 70 mmHg Height 60 inches 5'0" Weight 147.38 lb BMI (Body Mass Index) 28.8 kg/m2 Heart Rate 90 /min Respiratory Rate 16 /min Body Temperature 97.7 F O2 % BldC Oximetry 100 % [place] Body Weight 100 lb Results Description No Information Available Procedures Description No Information Available Medical Devices Description No Information Available Encounters Type Date Location Provider Dx Diagnosis Office Visit 04/24/2020 8:00a [facility] LATHA Harris Z00.01 Encounter for general adult medical exam w abnormal findings F41.1 Generalized anxiety disorder Office Visit 02/29/2020 2:40p [facility] LATHA Harris F41.1 Generalized anxiety disorder F33.2 Major depressv disorder, rec urrent severe w/o psych features R92.2 Inconclusive mammogram Office Visit 02/07/2020 2:40p [facility] Miguel Quinones D.O. N63.21 Unspecified lump in the left breast, upper outer quadrant Z12.31 Encntr screen mammogram for malignant neoplasm of breast Z80.3 Family history of malignant neoplasm of breast Office Visit 01/30/2020 1:20p [facility] LATHA Harris F41.1 Generalized anxiety disorder F33.2 Major depressv disorder, rec urrent severe w/o psych features Assessments Date Code Description Provider 04/24/2020 Z00.01 Encounter for genera l adult medical examination with abnormal findings LATHA Harris 04/24/2020 F41.1 Generalized anxiety disorder LATHA Vasquez 02/29/2020 F41.1 Generalized anxiety disorder LATHA Vasquez 02/29/2020 F33.2 Major depressive disorder, recur rent severe without psychoti LATHA Harris 02/29/2020 R92.2 Inconclusive mammogram LATHA Harris 02/07/2020 N63.21 Unspecified lump in the left magi ast, upper outer quadrant Rosina Quinones D.OLydia 02/07/2020 Z12.31 Encounter for screen ing mammogram for malignant neoplasm of breast Rosina Quinones D.OLydia 02/07/2020 Z80.3 Family history of malignant neop lasm of breast Rosina Briones, D.OLydia 01/30/2020 F41.1 Generalized anxiety disorder LATHA Vasquez 01/30/2020 F33.2 Major depressive disorder, recur rent severe without psychoti LATHA Harris Plan of Treatment Future Appointment(s):* 05/27/2020 10:20 am - LATHA Harris at [facility] 04/24/2020 - LATHA Harris* Z00.01 Encounter for general adult medical examination with abnormal findings * F41.1 Generalized anxiety disorder* New Medication:* Clonazepam 0.5 mg - one tablet by mouth twice daily as needed for anxiety istop [id number] * Comments:* Given your symptoms, we will work on improving your sleep, and will discuss further at followup. Call if there are any other issues with your medications or other concerns. * Follow up:* 1 month with me. Functional Status Description No Information Available Mental Status Description No Information Available Referrals Refer to Reason for Referral Status Appt Date Amalia Chester DO This is a 39 year old fema le with palbale lump and abnormal mammo. Ultrasound guided biopsy was recommended. Please evaluate and treat. Sent [facility] [place] [id number] [phone]
--- OUTSIDE RECORDS SUMMARY | 2020-07-03 06:32 | CCD | Continuity of Care Document ---
Author Author Denise PATTEN [place] Organization Unknown Address [address] [place] [address] 6 [address] [place] [address] Phone [phone] Care Team Providers Care Journal Entry Audit Clerk Name Role Phone Rosina Quinones D.O. AUTM Amalia Chester DO AUTM Problems Active Problems Provider Date Moderate recurrent [...] SIG Qnty Indications Ordering Provide r Date Aripiprazole 2mg Tablets 1 by mouth every day 90tabs F41.1 Rosina Quinones D.O. 05/27 Clonazepam 0.5mg Tablets one tablet by mouth twice daily as needed for anxiety istop [id number] 60tabs F41 .1 Leeanne FongO. 04/24/2020 Bupropion Hydrochloride ER (XL) 150mg Tablets ER 24HR 1 by mouth every day 30tabs F41.1 Rosa Fong.O. 01/30/2020 History Medications Buspirone HCL 10mg Tablets take 1 tablet by mouth twice a day as needed 60tabs F41.1 Rosina shaikh D.O. 02/29/2020 - 04/24/2020 No Active Medications Unknown - 01/30/2020 Immunizations CPT Code Status Date Vaccine Lot # [id number] Given 03/08/2018 TB Intradermal Test [id number] Vital Signs Date Vital Result Comment 05/27/2020 10:24am BP Systolic 112 mmHg BP Diastolic 78 mmHg Height 60 inches 5'0" Weight 134.00 lb BMI (Body Mass Index) 26.2 kg/m2 Heart Rate 78 /min Respiratory Rate 16 /min Body Temperature 99.5 F O2 % BldC Oximetry 99 % [place] Body Weight 100 lb 04/24/2020 8:02am BP Systolic 118 mmHg BP Diastolic 70 mmHg Height 60 inches 5'0" Weight 141.38 lb BMI (Body Mass Index) 27.6 kg/m2 Heart Rate 90 /min Respiratory Rate 187 /min Body Temperature 98.2 F O2 % BldC Oximetry 99 % [place] Body Weight 100 lb Results Description No Information Available Procedures Description No Information Available Medical Devices Description No Information Available Encounters Type Date Location Provider Dx Diagnosis Office Visit 05/27/2020 10:20a [facility] LATHA Cain F41.1 Generalized anxiety disorder M79.3 Panniculitis, unspecified Office Visit 04/24/2020 8:00a [facility] LATHA Cain Z00.01 Encounter for general adult medical exam w abnormal findings F41.1 Generalized anxiety disorder Office Visit 02/29/2020 2:40p [facility] LATHA Cain F41.1 Generalized anxiety disorder F33.2 Major depressv disorder, rec urrent severe w/o psych features R92.2 Inconclusive mammogram Office Visit 02/07/2020 2:40p [facility] Miguel Quinones D.O. N63.21 Unspecified lump in the left breast, upper outer quadrant Z12.31 Encntr screen mammogram for malignant neoplasm of breast Z80.3 Family history of malignant neoplasm of breast Office Visit 01/30/2020 1:20p [facility] LATHA Cain F41.1 Generalized anxiety disorder F33.2 Major depressv disorder, rec urrent severe w/o psych features Assessments Date Code Description Provider 05/27/2020 F41.1 Generalized anxiety disorder LATHA Vasquez 05/27/2020 M79.3 Panniculitis, unspecified LATHA Harris 04/24/2020 Z00.01 Encounter for [facility] adult medical examination with abnormal findings LATHA Harris 04/24/2020 F41.1 Generalized anxiety disorder LATHA Vasquez 02/29/2020 F41.1 Generalized anxiety disorder ALTHA Vasquez 02/29/2020 F33.2 Major depressive disorder, recur rent severe without psychoti LATHA Harris 02/29/2020 R92.2 Inconclusive mammogram LATHA Harris 02/07/2020 N63.21 Unspecified lump in the left magi ast, upper outer quadrant Rosina Quinones, D.O. 02/07/2020 Z12.31 Encounter for screen ing mammogram for malignant neoplasm of breast Rosina Quinones D.OLydia 02/07/2020 Z80.3 Family history of malignant neop lasm of breast Rosina Briones, D.O. 01/30/2020 F41.1 Generalized anxiety disorder LATHA Vasquez 01/30/2020 F33.2 Major depressive disorder, recur rent severe without psychoti LATHA Harris Plan of Treatment Future Appointment(s):* 07/02/2020 8:00 am - LATHA Harris at [facility] Functional Status Description No Information Available Mental Status Description No Information Available Referrals Refer to Reason for Referral Status Appt Date Amalia Chester DO This is a 39 year old fema le with palbale lump and abnormal mammo. Ultrasound guided biopsy was recommended. Please evaluate and treat. Closed [facility] [place], [place] [id number] [phone]
--- OUTSIDE RECORDS SUMMARY | 2020-07-03 06:32 | CCD | Continuity of Care Document ---
Author Author Denise PATTEN [place] Organization Unknown Address [address] [place] [address] 6 [address] [place] [address] Phone [phone] Care Team Providers Care Project Estimator Name Role Phone Rosina Quinones D.O. AUTM Amalia Chester DO AUTM [phone] Problems Active Problems Provider Date Moderate recurrent [...] twice daily as needed for anxiety istop [id number] 60tabs F41 .1 Rosina Quinones D.O. 04/24/2020 Bupropion Hydrochloride ER (XL) 150mg Tablets ER 24HR 1 by mouth every day 30tabs F41.1 Rosina Quinones D.O. 01/30/2020 History Medications Buspirone HCL 10mg Tablets take 1 tablet by mouth twice a day as needed 60tabs F41.1 Leeanne MontesinosO. 02/29/2020 - 04/24/2020 No Active Medications Unknown - 01/30/2020 Immunizations CPT Code Status Date Vaccine Lot # [id number] Given 03/08/2018 TB Intradermal Test [id number] Vital Signs Date Vital Result Comment 04/24/2020 8:02am BP Systolic 118 mmHg BP Diastolic 70 mmHg Height 60 inches 5'0" Weight 141.38 lb BMI (Body Mass Index) 27.6 kg/m2 Heart Rate 90 /min Respiratory Rate 187 /min Body Temperature 98.2 F O2 % BldC Oximetry 99 % [place] Body Weight 100 lb 02/29/2020 2:50pm BP Systolic 115 mmHg BP Diastolic 70 mmHg Height 60 inches 5'0" Weight 147.38 lb BMI (Body Mass Index) 28.8 kg/m2 Heart Rate 90 /min Respiratory Rate 16 /min Body Temperature 97.7 F O2 % BldC Oximetry 100 % [place] Body Weight 100 lb Results Description No Information Available Procedures Description No Information Available Medical Devices Description No Information Available Encounters Type Date Location Provider Dx Diagnosis Office Visit 02/29/2020 2:40p [facility] LATHA Harris F41.1 Generalized anxiety disorder F33.2 Major depressv disorder, rec urrent severe w/o psych features R92.2 Inconclusive mammogram Office Visit 02/07/2020 2:40p [facility] Rosina Quinones D.O. N63.21 Unspecified lump in the left breast, upper outer quadrant Z12.31 Encntr screen mammogram for malignant neoplasm of breast Z80.3 Family history of malignant neoplasm of breast Office Visit 01/30/2020 1:20p [facility] LATHA Harris F41.1 Generalized anxiety disorder [...] for malignant neoplasm of breast Rosina Quinones D.O. 02/07/2020 Z80.3 Family history of malignant neop lasm of breast Leeanne OroscoOLydia 01/30/2020 F41.1 Generalized anxiety disorder LATHA Vasquez 01/30/2020 F33.2 Major depressive disorder, recur rent severe without psychoti LATHA Harris Plan of Treatment Future Appointment(s):* 05/27/2020 10:20 am - LATHA Harris at [facility] 04/24/2020 - LATHA Harris* Z00.01 Encounter for general adult medical examination with abnormal findings * F41.1 Generalized anxiety disorder* New Medication:* Clonazepam 0.5 mg - one tablet by mouth twice daily as needed for anxiety istop [id number] * Comments:* Given your symptoms, we will [...] was recommended. Please evaluate and treat. Sent [facility] [place] [address] [phone]
--- OUTSIDE RECORDS SUMMARY | 2020-07-03 06:32 | CCD | Continuity of Care Document ---
Author Author Denise PATTEN MT Organization Unknown Address [address] [place] [address] 6 [address] [place] [address] Phone [phone] Care Team Providers Care Recovery Auditor Name Role Phone Rosina Quinones D.O. AUTM [phone] Amalia Chester DO AUTM [phone] Problems Active Problems Provider Date Moderate recurrent [...] twice daily as needed for anxiety istop [id number] 60tabs F41 .1 Leeanne FongO. 04/24/2020 Bupropion Hydrochloride ER (XL) 150mg Tablets ER 24HR 1 by mouth every day 30tabs F41.1 Rosa Fong.O. 01/30/2020 History Medications Buspirone HCL 10mg Tablets take 1 tablet by mouth twice a day as needed 60tabs F41.1 Rosa Montesinos.O. 02/29/2020 - 04/24/2020 No Active Medications Unknown - 01/30/2020 Immunizations CPT Code Status Date Vaccine Lot # [id number] Given 03/08/2018 TB Intradermal Test [id number] Vital Signs Date Vital Result Comment 05/27/2020 10:24am BP Systolic 112 mmHg BP Diastolic 78 mmHg Height 60 inches 5'0" Weight 134.00 lb BMI (Body Mass Index) 26.2 kg/m2 Heart Rate 78 /min Respiratory Rate 16 /min Body Temperature 99.5 F O2 % BldC Oximetry 99 % Harris Body Weight 100 lb 04/24/2020 8:02am BP Systolic 118 mmHg BP Diastolic 70 mmHg Height 60 inches 5'0" Weight 141.38 lb BMI (Body Mass Index) 27.6 kg/m2 Heart Rate 90 /min Respiratory Rate 187 /min Body Temperature 98.2 F O2 % BldC Oximetry 99 % Harris Body Weight 100 lb Results Description No Information Available Procedures Description No Information Available Medical Devices Description No Information Available Encounters Type Date Location Provider Dx Diagnosis Office Visit 04/24/2020 8:00a Family [facility] LATHA Cain Z00.01 Encounter for general adult medical exam w abnormal findings F41.1 Generalized anxiety disorder Office Visit 02/29/2020 2:40p [facility] LATHA Cain F41.1 Generalized anxiety disorder F33.2 Major depressv disorder, rec urrent severe w/o psych features R92.2 Inconclusive mammogram Office Visit 02/07/2020 2:40p [facility] Miguel Quinones D.O. N63.21 Unspecified lump in the left breast, upper outer quadrant Z12.31 Encntr screen mammogram for malignant neoplasm of breast Z80.3 Family history of malignant neoplasm of breast Office Visit 01/30/2020 1:20p [facility] LATHA Harris F41.1 Generalized anxiety disorder F33.2 Major depressv disorder, rec urrent severe w/o psych features Assessments Date Code Description Provider 05/27/2020 F41.1 Generalized anxiety disorder LATHA Vasquez 05/27/2020 M79.3 Panniculitis, unspecified LATHA Harris 04/24/2020 Z00.01 Encounter for genera l adult [...] 07/02/2020 8:00 am - LATHA Harris at [facility] 05/27/2020 - LATHA Harris* F41.1 Generalized anxiety disorder* New Medication:* Aripiprazole 2 mg - 1 by mouth every day * Comments:* Not yet controlled , and we will restart abilify to help with your symptoms. Call for any concerns. Consider using [facility] health walk in service as well. We will discuss further at followup. * Follow up:* 1 month with me. * M79.3 Panniculitis, unspecified* Comments:* Refractory to current [place] treatment. Consider using [facility], and we will discuss further at followup. Functional Status Description No Information Available Mental Status Description No Information Available Referrals Refer to Reason for Referral Status Appt Date Amalia Chester DO This is a 39 year old fema le with palbale lump and abnormal mammo. Ultrasound guided biopsy was recommended. Please evaluate and treat. Closed [facility] [place] [address] [phone]
--- OUTSIDE RECORDS SUMMARY | 2020-07-03 06:33 | CCD ---
Author Author [facility] Organization [facility] Address Unknown Phone Unavailable Care Team Providers Care Logistics Supply Officer Name Role Phone Jl Mcclendon PA Unavailable Unavailable HakanJl stewart PA Unavailable Unavailable HakanPanfilo stewarten PA Unavailable Unavailable HakanJl stewart PA Unavailable Unavailable HakanJl stewart PA Unavailable Unavailable HakanJl stewart PA Unavailable Unavailable HakanJl stewart PA Unavailable Unavailable HakanJl stewart PA Unavailable Unavailable Hakan, Jl PA Unavailable Unavailable HakanJl stewart PA Unavailable Unavailable HakanJl stewart PA Unavailable Unavailable HakanPanfilo stewarten PA Unavailable Unavailable Hakan, Jl PA Unavailable Unavailable Hakan, Jl PA Unavailable Unavailable Hakan, Jl PA Unavailable Unavailable Hakan, Jl PA Unavailable Unavailable Hakan, Jl PA Unavailable Unavailable Hakan, Jl PA Unavailable Unavailable Hakan, Jl PA Unavailable Unavailable Hakan, Jl PA Unavailable Unavailable Hakan, Jl PA Unavailable Unavailable Hakan, Jl PA Unavailable Unavailable Hakan, Jl PA Unavailable Unavailable Hakan, Jl PA Unavailable Unavailable Hakan, Jl PA Unavailable Unavailable Hakan, Jl PA Unavailable Unavailable Hakan, Jl PA Unavailable Unavailable Hakan, Jl PA Unavailable Unavailable Hakan, Jl PA Unavailable Unavailable Hakan, Jl PA Unavailable Unavailable Hakan, Jl PA Unavailable Unavailable Hakan, Jl PA Unavailable Unavailable Hakan, Jl PA Unavailable Unavailable Hakan, Jl PA Unavailable Unavailable Hakan, Jl PA Unavailable Unavailable Hakan, Jl PA Unavailable Unavailable Hakan, Jl PA Unavailable Unavailable Hakan, Jl PA Unavailable Unavailable Hakan, Jl PA Unavailable Unavailable Hakan, Jl PA Unavailable Unavailable Hakan, Jl PA Unavailable Unavailable Hakan, Jl PA Unavailable Unavailable Hakan, Jl PA Unavailable Unavailable Hakan, Jl PA Unavailable Unavailable Hakan, Jl PA Unavailable Unavailable Hakan, Jl PA Unavailable Unavailable Hakan, Jl PA Unavailable Unavailable Hakan, Jl PA Unavailable Unavailable Hakan, Jl PA Unavailable Unavailable OVI-MRACELO, ROSINA DO Unavailable Unavailable OVI-MARCELO, ROSINA DO Unavailable Unavailable OVI-MARCELO, ROSINA DO Unavailable Unavailable OVI-MARCELO, ROSINA DO Unavailable Unavailable OVI-MARCELO, ROSINA DO Unavailable Unavailable OVI-MARCELO, ROSINA DO Unavailable Unavailable OVI-MARCELO, ROSINA DO Unavailable Unavailable OVI-MARCELO, ROSINA DO Unavailable Unavailable OVI-MARCELO, ROSINA DO Unavailable Unavailable OVI-MARCELO, ROSINA DO Unavailable Unavailable OVI-MARCELO, ROSINA DO Unavailable Unavailable OVI-MARCELO, ROSINA DO Unavailable Unavailable OVI-MARCELO, ROSINA DO Unavailable Unavailable OVI-MACRELO, ROSINA DO Unavailable Unavailable OVI-MARCELO, ROSINA DO Unavailable Unavailable OVI-MARCELO, ROSINA DO Unavailable Unavailable OVI-MARCELO, ROSINA DO Unavailable Unavailable OVI-MARCELO, ROSIAN DO Unavailable Unavailable OVI-MARCELO, ROSINA DO Unavailable Unavailable OVI-MARCELO, ROSINA DO Unavailable Unavailable OVI-MARCELO, ROSINA DO Unavailable Unavailable OVI-MARCELO, ROSINA DO Unavailable Unavailable OVI-MARCELO, ROSINA DO Unavailable Unavailable OVI-MARCELO, ROSINA DO Unavailable Unavailable OVI-MARCELO, ROSINA DO Unavailable Unavailable OVI-MARCELO, ROSINA DO Unavailable Unavailable OVI-MARCELO, ROSINA DO Unavailable Unavailable OVI-MARCELO, ROSINA DO Unavailable Unavailable OVI-MARCELO, ROSINA DO Unavailable Unavailable OVI-MARCELO, ROSINA DO Unavailable Unavailable OVI-MARCELO, ROSINA DO Unavailable Unavailable OVI-MARCELO, ROSINA DO Unavailable Unavailable OVI-MARCELO, ROSINA DO Unavailable Unavailable OVI-MARCELO, ROSINA DO Unavailable Unavailable OVI-MARCELO, ROSINA DO Unavailable Unavailable OVI-MARCELO, ROSINA DO Unavailable Unavailable OVI-MARCELO, ROSINA DO Unavailable Unavailable OVI-MARCELO, ROSINA DO Unavailable Unavailable OVI-MARCELO, ROSINA DO Unavailable Unavailable OVI-MARCELO, ROSINA DO Unavailable Unavailable OVI-MARCELO, ROSINA DO Unavailable Unavailable OVI-MARCELO, ROSINA DO Unavailable Unavailable OVI-MARCELO, ROSINA DO Unavailable Unavailable OVI-MARCELO, ROSINA DO Unavailable Unavailable OVI-MARCELO, ROSINA DO Unavailable Unavailable OVI-MARCELO, ROSINA DO Unavailable Unavailable OVI-MARCELO, ROSINA DO Unavailable Unavailable OVI-MARCELO, ROSINA DO Unavailable Unavailable OVI-MARCELO, ROSINA DO Unavailable Unavailable OVI-MARCELO, ROSINA DO Unavailable Unavailable OVI-MARCELO, ROSINA DO Unavailable Unavailable OVI-MARCELO, ROSINA DO Unavailable Unavailable OVI-MARCELO, ROSINA DO Unavailable Unavailable OVI-MARCELO, ROSINA DO Unavailable Unavailable OVI-MARCELO, ROSINA DO Unavailable Unavailable OVI-MARCELO, ROSINA DO Unavailable Unavailable OVI-MARCELO, ROSINA DO Unavailable Unavailable OVI-MARCELO, ROSINA DO Unavailable Unavailable OVI-MARCELO, ROSINA DO Unavailable Unavailable OVI-MARCELO, ROSINA DO Unavailable Unavailable OVI-MARCELO, ROSINA DO Unavailable Unavailable OVI-MARCELO, ROSINA DO Unavailable Unavailable OVI-MARCELO, ROSINA DO Unavailable Unavailable OVI-MARCELO, ROSINA DO Unavailable Unavailable OVI-MARCELO, ROSINA DO Unavailable Unavailable OVI-MARCELO, ROSINA DO Unavailable Unavailable OVI-MARCELO, ROSINA DO Unavailable Unavailable OVI-MARCELO, ROSINA DO Unavailable Unavailable OVI-MARCELO, ROSINA DO Unavailable Unavailable OVI-MARCELO, ROSINA DO Unavailable Unavailable OVI-MARCELO, ROSINA DO Unavailable Unavailable OVI-MARCELO, ROSINA DO Unavailable Unavailable OVI-MARCELO, ROSINA DO Unavailable Unavailable OVI-MARCELO, ROSINA DO Unavailable Unavailable OVI-MARCELO, ROSINA DO Unavailable Unavailable OVI-MARCELO, ROSINA DO Unavailable Unavailable OVI-MARCELO, ROSINA DO Unavailable Unavailable OVI-MARCELO, ROSINA DO Unavailable Unavailable OVI-MARCELO, ROSINA DO Unavailable Unavailable OVI-MARCELO, ROSINA DO Unavailable Unavailable OVI-MARCELO, ROSINA DO Unavailable Unavailable OVI-MARCELO, ROSINA DO Unavailable Unavailable Bettencourt, Rachel COMPUTER TECHNICAL SUPPORT SPECIALIST Unavailable Unavailable Bettencourt, Rachel COMPUTER TECHNICAL SUPPORT SPECIALIST Unavailable Unavailable Bettencourt, Rachel COMPUTER TECHNICAL SUPPORT SPECIALIST Unavailable Unavailable Bettencourt, Rachel COMPUTER TECHNICAL SUPPORT SPECIALIST Unavailable Unavailable Bettencourt, Rachel COMPUTER TECHNICAL SUPPORT SPECIALIST Unavailable Unavailable Bettencourt, Rachel COMPUTER TECHNICAL SUPPORT SPECIALIST Unavailable Unavailable Bettencourt, Rachel COMPUTER TECHNICAL SUPPORT SPECIALIST Unavailable Unavailable Bettencourt, Rachel COMPUTER TECHNICAL SUPPORT SPECIALIST Unavailable Unavailable Bettencourt, Rachel COMPUTER TECHNICAL SUPPORT SPECIALIST Unavailable Unavailable Bettencourt, Rachel COMPUTER TECHNICAL SUPPORT SPECIALIST Unavailable Unavailable Bettencourt, Rachel COMPUTER TECHNICAL SUPPORT SPECIALIST Unavailable Unavailable Re-disclosure Warning The records that you are about to access may contain information from federally-assisted alcohol or drug abuse programs. If such information is present, then the following federally mandated warning applies: This information has been disclosed to you from records protected by federal confidentiality rules (42 CFR part 2). The federal rules prohibit you from making any further disclosure of this information unless further disclosure is expressly permitted by the written consent of the person to whom it pertains or as otherwise permitted by 42 CFR part 2. A general authorization for the release of medical or other information is NOT sufficient for this purpose. The Federal rules restrict any use of the information to criminally investigate or prosecute any alcohol or drug abuse patient.The records that you are about to access may contain highly sensitive health information, the redisclosure of which is protected by Article 27-F of the [facility] Public Health law. If you continue you may have access to information: Regarding HIV / AIDS; Provided by facilities licensed or operated by the [facility] Office of Mental Health; or Provided by the [facility] Office for People With Developmental Disabilities. If such information is present, then the following [facility] mandated warning applies: This information has been disclosed to you from confidential records which are protected by state law. State law prohibits you from making any further disclosure of this information without the specific written consent of the person to whom it pertains, or as otherwise permitted by law. Any unauthorized further disclosure in violation of state law may result in a fine or nursing home sentence or both. A general authorization for the release of medical or other information is NOT sufficient authorization for further disc losure. Family History Family Member Name Family Member Gender Family Member Status Date o f Status Description Data Source(s) Unknown Unknown Problem [facility] ([facility]) Encounters Encounter Providers Location Date Indications Data Source(s ) Outpatient Attender: Jl AZUL [facility] 05/27/2020 09:20:00 AM EST [facility] ([facility]) Outpatient Attender: Jl AZUL [facility] 04/24/2020 07:00:00 AM EST [facility] ([facility]) Outpatient Attender: Rachel elena 04/14/2020 08:50:00 AM EST [facility] ([facility] Outpatient Attender: Jl AZUL [facility] 02/29/2020 02:40:00 PM EDT [facility] ([facility]) Outpatient Attender: ROSINA FERRER DO [facility] 02/07/2020 02:40:00 PM EDT [facility] ([facility]) Outpatient Attender: Jl AZUL [facility] 01/30/2020 01:20:00 PM EDT [facility] ([facility]) Outpatient 08/16/2019 05:01:00 AM EDT [facility] Imaging Medications Medication Brand Name Start Date Product Form Dose Route Admi nistrative Instructions Pharmacy Instructions Status Indications Reaction Description Data Source(s) aripiprazole 2 MG Oral Tablet Aripiprazole 05/27/2020 12:00:00 AM EST ORAL active [facility] ([facility]) 2 mg 05/27/2020 12:00:00 AM EST tablet 90 TAKE ONE TABLET BY MOUTH EVERY DAY TAKE ONE TABLET BY MOUTH EVERY DAY SOLD: 05/29/2020 [facility] Clonazepam 0.5 MG Oral Tablet Clonazepam 04/24/2020 12:00:00 AM EST ORAL active [facility] ([facility]) 0.5 mg 04/24/2020 12:00:00 AM EST tablet 60 TAKE ONE TABLET BY MOUTH TWICE A DAY NEEDED FOR ANXIETY MAXIMUM DAILY DOSE = 2 TAKE ONE TABLET BY MOUTH TWICE A DAY NEEDED FOR ANXIETY MAXIMUM DAILY DOSE = 2 SOLD: 04/24/2020 [facility] Prednisone 20 MG Oral Tablet Prednisone 04/14/2020 12:00:00 AM EST active [facility] ([facility]) 20 mg 04/14/2020 12:00:00 AM EST tablet 8 TAKE ONE TABLET BY MOUTH TWICE A DAY FOR 4 DAYS TAKE ONE TABLET BY MOUTH TWICE A DAY FOR 4 DAYS SOLD: 2019 [facility] buspirone hydrochloride 10 MG Oral Tablet BUSPIRONE HCL 03/01/2020 12:00:00 AM EDT tablet 60 TAKE ONE TABLET BY MOUTH TWI CE A DAY NEEDED TAKE ONE TABLET BY MOUTH TWICE A DAY NEEDED SOLD: 03/01/2020 [facility] buspirone hydrochloride 10 MG Oral Tablet Buspirone HCL 02/29/2020 12:00:00 AM EDT ORAL completed [facility] ([facility]) 24 HR Bupropion Hydrochloride 150 MG Extended Release Oral T ablet BUPROPION HCL 01/31/2020 12:00:00 AM EDT tablet extended release 24 hr 30 TAKE ONE TABLET BY MOUTH EVERY DAY TAKE ONE TABLET BY MOUTH EVERY DAY SOLD: 03/10/2020 [facility] 24 HR Bupropion Hydrochloride 150 MG Extended Release Oral T ablet BUPROPION HCL 01/31/2020 12:00:00 AM EDT tablet extended release 24 hr 30 TAKE ONE TABLET BY MOUTH EVERY DAY TAKE ONE TABLET BY MOUTH EVERY DAY SOLD: 05/12/2020 [facility] 24 HR Bupropion Hydrochloride 150 MG Extended Release Oral T ablet BUPROPION HCL 01/31/2020 12:00:00 AM EDT tablet extended release 24 hr 30 TAKE ONE TABLET BY MOUTH EVERY DAY TAKE ONE TABLET BY MOUTH EVERY DAY SOLD: 01/31/2020 [facility] 24 HR Bupropion Hydrochloride 150 MG Extended Release Oral T ablet BUPROPION HCL 01/31/2020 12:00:00 AM EDT tablet extended release 24 hr 30 TAKE ONE TABLET BY MOUTH EVERY DAY TAKE ONE TABLET BY MOUTH EVERY DAY SOLD: 06/12/2020 [facility] 24 HR Bupropion Hydrochloride 150 MG Extended Release Oral Tablet Bupropion Hydrochloride ER (XL) 01/30/2020 12:00:00 AM EDT ORAL a ctive MEDENT ([facility]) No Active Medications 01/30/2020 12:00:00 AM EDT completed [facility] ([facility]) Insurance Providers Payer name Policy type / Coverage type Policy ID Covered constitution party ID Covered constitution party's relationship to aguilar Policy Aguilar Plan Information SELF PAY ONLY [id number] SP [id number] [facility] B [id number] S [id number] [id number] [facility] O [id number] S [id number] SELF PAY PMA MANAGEMENT [facility] [id number] SP [id number] PMA MANAGEMENT ELIO [facility] O [id number] S [id number] [facility] [id number] [employer] E[employer]IRE JOHN DIV [id number] [place] Plan Commercial [id number] Family Dependent [id number] VALUE OPTIONS OUTPATIENT CLAIM [id number] [facility] [id number] YLS [id number] [facility] [place] Commercial [id number] Family Depende nt [id number] [place] Plan Commercial [id number] Family Dependent [id number] [facility] ([facility]) O [id number] O [id number] [facility] O [id number] O [id number] [place] Plan Commercial [id number] Family Dependent [id number] [place] Plan Commercial [id number] Family Dependent [id number] [facility] [id number] 89 [id number] BCBS EMPIRE JOHN DIV [id number] [place] Plan Commercial [id number] Family Dependent [id number] [place] Plan Commercial [id number] Family Dependent [id number] [place] Plan Commercial [id number] Family Dependent [id number] [place] Plan Commercial [id number] Family Dependent [id number] [place] Plan Commercial [id number] Family Dependent [id number] [place] Plan Commercial Family Dependent [facility]/P [id number] 01 [id number] [facility] O [id number] S [id number] Results ID Date Data Source [id number] 04/14/2020 12:00:00 AM EST [facility] Name Value Range Interpretation Code Description Data Cristina rce(s) Supporting Document(s) SARS coronavirus 2 Ag [facility] This lab was ordered by [facility] ID Date Data Source [id number] 04/01/2020 12:00:00 AM EST [facility] Name Value Range Interpretation Code Description Data Cristina rce(s) Supporting Document(s) SARS-CoV2 Rapid Antigen [facility] This lab was ordered by [facility] and reported by [facility]. ID Date Data Source [id number] 02/28/2020 12:00:00 AM EDT [facility] Rosina Briones DO Patient Name: DANIEL [id number] Date of : 1980 1 Date of Exam:02/28/2020LITTLE Carter [id number]#: Fax: [phone] EXAM: MAMMO DIAG INC CAD BILATERAL AND ULTRASOUND BREAST UNI LIMITEDCLINICAL INFORMATION: Diagnostic.Based on the personal health history and familial cancer history yourpatient supplied at the time of imaging, her lifetime risk of breast cancerestimated by the Tyrer-Cuzick model is 21.8%. However, due to the unknowngene mutation status, there are limitations to the accuracy of this riskestimate. Similarly, if anything changes in the personal and/or familyhistory this percentage could increase or decrease. Currently, [facility] and [place] Cancer Society recommendadjunctive breast MRI screening starting at age 30 for women with a> 20-25% lifetime risk of developing breast cancer.Based on the personal and family history information your patient suppliedat the time of imaging, your patient meets the National ComprehensiveCancer Network testing criteria and elected to meet with our hereditarycancer specialist which may include genetic testing. Results are pending.This test result could increase or decrease your patient's breast cancerrisk estimate. Addendum to follow.Digital screening (2D) mammography was performed bilaterally. Additionally,breast tomosynthesis (3D) mammography was performed bilaterally in the CCand MLO projections. In addition, diagnostic digital magnified spotcompression views over a palpable mass in the left breast at the 12 o'clockposition were obtained along with ultrasonography of the left breast overthat same region of interest.Diagnostic digital magnified spot compression views of the right breastalso obtained at the 12 o'clock region.Today's examination is the initial screening examination.The patient states that the last clinical breast exam was on 02/07/2020.The breasts are symmetric in size and shape. Markedly dense heterogeneousnodular fibroglandular elements are seen bilaterally to such a degree thatthe sensitivity of the mammogram in detecting cancer is decreased.In the left breast at 12 o'clock, there is a nodular density with internalcalcifications. This persists on diagnostic digital magnified spotcompression views. Diagnostic ultrasonography of this area shows a solidmass with kPa values using Shear wave elastography approaching 60.A potential asymmetric density was seen in the right breast at the 12o'clock position. Diagnostic digital magnified spot compression views ofthis area were also obtained. The area compresses out to normal breastparenchyma.Benign calcifications are seen in each breast.The Volpara volumetric breast density category is C, the breasts areheterogeneously dense which may obscure small masses.IMPRESSION:1. There is a solid left breast mass as described above and for whichultrasonographic biopsy is recommended. ACR Category 4.2. There is no abnormality seen in the right breast.This mammogram was read with the assistance of Franky De JesusBit9, an FDAapproved computer aided detection system for mammography.Negative x-ray reports should not delay surgical consultation if a dominantor clinically suspicious mass is present.Not all breast cancers can be identified by mammography. Therefore, werecommend that you continue to perform regular breast self-examination andphysical examination and then promptly contact your physician of anyconcerns or changes.Adenosis and dense breasts may obscure an underlying neoplasm.BLANE Conley/Lv you for referring SANTHOSH BEE to our office. Electronically Signed - CARIE ZHAO DO 02/29/20 13:02 Name Value Range Interpretation Code Description Data Cristina rce(s) Supporting Document(s) ID Date Data Source [id number] 02/28/2020 12:00:00 AM EDT [facility] Rosina Briones DO Patient Name: DANIEL [id number] Date of : 1980 1 [facility] [id number] Fax: [phone] EXAM: MAMMO DIAG INC CAD BILATERAL AND ULTRASOUND BREAST UNI LIMITEDCLINICAL INFORMATION: Diagnostic.Based on the personal health history and familial cancer history yourpatient supplied at the time of imaging, her lifetime risk of breast cancerestimated by the Tyrer-Cuzick model is 21.8%. However, due to the unknowngene mutation status, there are limitations to the accuracy of this riskestimate. Similarly, if anything changes in the personal and/or familyhistory this percentage could increase or decrease. Currently, [facility] and [place] Cancer Society recommendadjunctive breast MRI screening starting at age 30 for women with a> 20-25% lifetime risk of developing breast cancer.Based on the personal and family history information your patient suppliedat the time of imaging, your patient meets the National ComprehensiveCancer Network testing criteria and elected to meet with our hereditarycancer specialist which may include genetic testing. Results are pending.This test result could increase or decrease your patient's breast cancerrisk estimate. Addendum to follow.Digital screening (2D) mammography was performed bilaterally. Additionally,breast tomosynthesis (3D) mammography was performed bilaterally in the CCand MLO projections. In addition, diagnostic digital magnified spotcompression views over a palpable mass in the left breast at the 12 o'clockposition were obtained along with ultrasonography of the left breast overthat same region of interest.Diagnostic digital magnified spot compression views of the right breastalso obtained at the 12 o'clock region.Today's examination is the initial screening examination.The patient states that the last clinical breast exam was on 02/07/2020.The breasts are symmetric in size and shape. Markedly dense heterogeneousnodular fibroglandular elements are seen bilaterally to such a degree thatthe sensitivity of the mammogram in detecting cancer is decreased.In the left breast at 12 o'clock, there is a nodular density with internalcalcifications. This persists on diagnostic digital magnified spotcompression views. Diagnostic ultrasonography of this area shows a solidmass with kPa values using Shear wave elastography approaching 60.A potential asymmetric density was seen in the right breast at the 12o'clock position. Diagnostic digital magnified spot compression views ofthis area were also obtained. The area compresses out to normal breastparenchyma.Benign calcifications are seen in each breast.The Volpara volumetric breast density category is C, the breasts areheterogeneously dense which may obscure small masses.IMPRESSION:1. There is a solid left breast mass as described above and for whichultrasonographic biopsy is recommended. ACR Category 4.2. There is no abnormality seen in the right breast.This mammogram was read with the assistance of Franky Feng GetThis, an FDAapproved computer aided detection system for mammography.Negative x-ray reports should not delay surgical consultation if a dominantor clinically suspicious mass is present.Not all breast cancers can be identified by mammography. Therefore, werecommend that you continue to perform regular breast self-examination andphysical examination and then promptly contact your physician of anyconcerns or changes.Adenosis and dense breasts may obscure an underlying neoplasm.BLANE Conley/Lv you for referring SANTHOSH BEE to our office. Electronically Signed - CARIE ZHAO DO 02/29/20 13:02 Name Value Range Interpretation Code Description Data Cristina rce(s) Supporting Document(s) Procedure Social History Code Duration Value Status Description Data Source(s ) Smoking 04/24/2020 12:00:00 AM EST Patient has never smoked co mpleted Patient has never smoked [facility] ([facility]) Smoking 04/14/2020 12:00:00 AM EST Patient has never smoked co mpleted Patient has never smoked [facility] ([facility]) Vital Signs ID Date Data Source UNK Name Value Range Interpretation Code Description Data Source(s) [place] body weight 100 [lb_av] 100 [lb_av] MEDEN T ([facility]) Oxygen saturation in Arterial blood by Pulse oximetry 99 % 99 % [facility] ([facility]) Body temperature 99.5 [degF] 99.5 [degF] [facility] ([facility]) Respiratory rate 16 /min 16 /min [facility] ( [facility]) Heart rate 78 /min 78 /min [facility] ([facility]) Body mass index (BMI) [Ratio] 26.2 kg/m2 26.2 k g/m2 [facility] Body weight 134.00 [lb_av] 134.00 [lb_av] MEDEN T ([facility]) Body height 60 [in_i] 60 [in_i] MEDENT ([facility]) 5'0" Diastolic blood pressure 78 mm[Hg] 78 mm[Hg] MEDENT ([facility]) Systolic blood pressure 112 mm[Hg] 112 mm[Hg] M EDENT ([facility]) [place] body weight 100 [lb_av] 100 [lb_av] MEDEN T ([facility]) Oxygen saturation in Arterial blood by Pulse oximetry 99 % 99 % [facility] ([facility]) Body temperature 98.2 [degF] 98.2 [degF] MEDENT ([facility]) Respiratory rate 187 /min 187 /min MEDENT ( [facility]) Heart rate 90 /min 90 /min MEDENT ([facility]) Body mass index (BMI) [Ratio] 27.6 kg/m2 27.6 k g/m2 MEDENT ([facility]) Body weight 141.38 [lb_av] 141.38 [lb_av] MEDEN T ([facility]) Body height 60 [in_i] 60 [in_i] MEDENT ([facility]) 5'0" Diastolic blood pressure 70 mm[Hg] 70 mm[Hg] MEDENT ([facility]) Systolic blood pressure 118 mm[Hg] 118 mm[Hg] [facility] Body mass index (BMI) [Ratio] 30.3 kg/m2 30.3 k g/m2 MEDENT ([facility], [facility]) Body height 59 [in_i] 59 [in_i] MEDENT ([facility], [facility]) 4'11" Body weight 150.00 [lb_av] 150.00 [lb_av] MEDEN T ([facility], [facility]) Body temperature 98.4 [degF] 98.4 [degF] MEDENT ([facility], [facility]) Oxygen saturation in Arterial blood by Pulse oximetry 95 % 95 % [facility], [facility]) Respiratory rate 18 /min 18 /min MEDENT ( [facility], [facility]) Heart rate 72 /min 72 /min MEDENT ([facility], [facility]) Diastolic blood pressure 80 mm[Hg] 80 mm[Hg] MEDENT ([facility], [facility]) Systolic blood pressure 112 mm[Hg] 112 mm[Hg] M NIRAJ ([facility], [facility]) [place] body weight 100 [lb_av] 100 [lb_av] MEDEN T ([facility]) Oxygen saturation in Arterial blood by Pulse oximetry 100 % 100 % [facility] Body temperature 97.7 [degF] 97.7 [degF] MEDENT ([facility]) Respiratory rate 16 /min 16 /min MEDENT ( [facility]) Heart rate 90 /min 90 /min MEDENT ([facility]) Body mass index (BMI) [Ratio] 28.8 kg/m2 28.8 k g/m2 MEDENT ([facility]) Body weight 147.38 [lb_av] 147.38 [lb_av] MEDEN T ([facility]) Body height 60 [in_i] 60 [in_i] MEDENT ([facility]) 5'0" Diastolic blood pressure 70 mm[Hg] 70 mm[Hg] MEDENT ([facility]) Systolic blood pressure 115 mm[Hg] 115 mm[Hg] [facility] [place] body weight 100 [lb_av] 100 [lb_av] MEDEN T ([facility]) Oxygen saturation in Arterial blood by Pulse oximetry 97 % 97 % [facility] ([facility]) Body temperature 97.5 [degF] 97.5 [degF] MEDENT ([facility]) Heart rate 78 /min 78 /min MEDENT ([facility]) Body mass index (BMI) [Ratio] 29.5 kg/m2 29.5 k g/m2 MEDENT ([facility]) Body weight 151.25 [lb_av] 151.25 [lb_av] MEDEN T ([facility]) Body height 60 [in_i] 60 [in_i] MEDENT ([facility]) 5'0" Diastolic blood pressure 80 mm[Hg] 80 mm[Hg] MEDENT ([facility]) Systolic blood pressure 118 mm[Hg] 118 mm[Hg] M TERESAENT ([facility]) Body mass index (BMI) [Ratio] 30.0 kg/m2 30.0 k g/m2 [place] ([facility]) Body weight 153.50 [lb_av] 153.50 [lb_av] JACQUELYN T ([facility]) Body height 60 [in_i] 60 [in_i] [place] ([facility]) 5'0" Diastolic blood pressure 86 mm[Hg] 86 mm[Hg] [place] ([facility]) Systolic blood pressure 132 mm[Hg] 132 mm[Hg] M NIRAJ ([facility]) [place] body weight 100 [lb_av] 100 [lb_av] JACQUELYN T ([facility]) Oxygen saturation in Arterial blood by Pulse oximetry 97 % 97 % [facility] Body temperature 97.7 [degF] 97.7 [degF] [place] ([facility]) Respiratory rate 16 /min 16 /min [facility] ( [facility] Heart rate 85 /min 85 /min [facility] ([facility])
--- OUTSIDE RECORDS SUMMARY | 2020-07-03 06:33 | CCD | Continuity of Care Document ---
Author Author Denise DALAL P Organization Unknown Address [address] [place] [id number] Phone [phone] Care Team Providers Care Packaging Clerk Name Role Phone Rosina Quinones DO AUTM [phone] AUTM [phone] Problems Description No Information Available Social History Type Date Description Comments Sex Unknown ETOH Use Occasionally consumes alcohol Tobacco Use Start: Unknown Patient has never smoked Smoking Status Reviewed: 04/14/20 Patient has never smoked Allergies, Adverse Reactions, Alerts Description No Known Drug Allergies Medications Active Medications SIG Qnty Indications Ordering Provide r Date Prednisone 20mg Tablets 1 tab twice a day for 4 days 8tabs J06.9 Michel Hastings JR., M.D. 10/2019 Bupropion HCL 75mg Tablets Unknown Immunizations Description No Information Available Vital Signs Date Vital Result Comment 04/14/2020 11:30am BP Systolic 112 mmHg BP Diastolic 80 mmHg Heart Rate 72 /min Respiratory Rate 18 /min O2 % BldC Oximetry 95 % Body Temperature 98.4 F Weight 150.00 lb Height 59 inches 4'11" BMI (Body Mass Index) 30.3 kg/m2 Pain Level 5 07/25/2018 9:01am BP Systolic 116 mmHg BP Diastolic 79 mmHg Heart Rate 92 /min Respiratory Rate 19 /min O2 % BldC Oximetry 97 % Body Temperature 98.8 F Weight 173.00 lb Height 59 inches 4'11" BMI (Body Mass Index) 34.9 kg/m2 Pain Level 5 Results Description No Information Available Procedures Description No Information Available Medical Devices Description No Information Available Encounters Type Date Location Provider Dx Diagnosis Office Visit 04/14/2020 9:50a Main Office Rachel Dalal NP J06. 9 Acute upper respiratory infection, unspecified Z20.828 Contact w and exposure to ot h viral communicable diseases Assessments Date Code Description Provider 04/14/2020 J06.9 Acute upper respiratory infectio n, unspecified Rachel Dalal NP 04/14/2020 Z20.828 Contact with and (marroquin spected) exposure to other viral communicable diseases Rachel Dalal NP Plan of Treatment No Information Available Functional Status Description No Information Available Mental Status Description No Information Available Referrals Description No Information Available
--- OUTSIDE RECORDS SUMMARY | 2020-07-03 06:33 | CCD | Continuity of Care Document ---
Author Author Denise DALAL P Organization Unknown Address [address] [place] [address] Phone [phone] Care Team Providers Care Health Information Coder Name Role Phone Rosina Quinones DO AUTM [phone] AUTM [phone] Problems Description No Information Available Social History [...]
[2020-07-03] MEDS ORDERED: BUPR150T12 PO (06:37)
[2020-07-03] MEDS ORDERED: ARIP1TAB4 PO (06:37)
--- OUTSIDE RECORDS SUMMARY | 2020-07-03 07:22 | CCD ---
Author Author [facility] Organization [facility] Address Unknown Phone Unavailable Care Team Providers Care Community Resource Officer Name Role Phone Jl Mcclendon Unavailable Unavailable Jl Mcclendon Unavailable Unavailable Jl Mcclendon Unavailable Unavailable Jl Mcclendon Unavailable Unavailable Jl Mcclendon Unavailable Unavailable Jl Mcclendon Unavailable Unavailable Jl Mcclendon Unavailable Unavailable Jl Mcclendon Unavailable Unavailable Jl Mcclendon Unavailable Unavailable Jl Mcclendon Unavailable Unavailable Jl Mcclendon Unavailable Unavailable Jl Mcclendon Unavailable Unavailable Hakan, Jl PA Unavailable Unavailable [...] Unavailable Unavailable Hakan, Jl PA Unavailable Unavailable OVI-MARCELO, ROSINA DO Unavailable Unavailable [...] Unavailable Unavailable OVI-MARCELO, ROSINA DO Unavailable Unavailable OVI-AMRCELO, ROSINA DO Unavailable Unavailable OVI-MARCELO, ROSINA DO Unavailable Unavailable OVI-MARCELO, ROSINA DO Unavailable Unavailable OVI-MARCELO, ROSINA DO Unavailable Unavailable OVI-MARCELO, ROSINA DO Unavailable Unavailable OVI-MARCELO, ROSINA DO Unavailable Unavailable OVI-MARCELO, ROSINA DO Unavailable Unavailable OVI-MARCELO, ROSINA DO Unavailable Unavailable OVI-MARCELO, ROSNIA DO Unavailable Unavailable OVI-MARCELO, ROSINA DO Unavailable [...] OVI-MARCELO, ROSINA DO Unavailable Unavailable Bettencourt, Rachel ARCHITECTURAL SUPERINTENDENT Unavailable Unavailable Bettencourt, Rachel ARCHITECTURAL SUPERINTENDENT Unavailable Unavailable Bettencourt, Rachel ARCHITECTURAL SUPERINTENDENT Unavailable Unavailable Bettencourt, Rachel ARCHITECTURAL SUPERINTENDENT Unavailable Unavailable Bettencourt, Rachel ARCHITECTURAL SUPERINTENDENT Unavailable Unavailable Bettencourt, Rachel ARCHITECTURAL SUPERINTENDENT Unavailable Unavailable Bettencourt, Rachel ARCHITECTURAL SUPERINTENDENT Unavailable Unavailable Bettencourt, Rachel ARCHITECTURAL SUPERINTENDENT Unavailable Unavailable Bettencourt, Rachel ARCHITECTURAL SUPERINTENDENT Unavailable Unavailable Bettencourt, Rachel ARCHITECTURAL SUPERINTENDENT Unavailable Unavailable Bettencourt, Rachel ARCHITECTURAL SUPERINTENDENT Unavailable Unavailable Re-disclosure Warning The records that [...] is protected by Article 27-F of the [facility] Public Health law. If you continue you may have access to information: Regarding HIV / AIDS; Provided by facilities licensed or operated by the [facility] Office of Mental Health; or Provided by the [facility] Office for People With Developmental Disabilities. If such information is present, then the following [facility] mandated warning applies: This information has been [...] law may result in a fine or long-term sentence or both. A general authorization for the release of medical or other information is NOT sufficient authorization for further disc losure. Family History Family Member Name Family Member Gender Family Member Status Date o f Status Description Data Source(s) Unknown Unknown Problem MEDENT ([facility]) Encounters Encounter Providers Location Date Indications Data Source(s ) Outpatient Attender: Jl AZUL [facility] 05/27/2020 09:20:00 AM EST MEDENT ([facility]) Outpatient Attender: Jl AZUL [facility] 04/24/2020 07:00:00 AM EST MEDENT ([facility]) Outpatient Attender: Rachel elena 04/14/2020 08:50:00 AM EST MEDENT ([facility] Outpatient Attender: Jl AZUL [facility] 02/29/2020 02:40:00 PM EDT MEDENT ([facility]) Outpatient Attender: ROSINA FERRER DO [facility] 02/07/2020 02:40:00 PM EDT MEDENT ([facility] y Medicine [facility]) Outpatient Attender: Jl AZUL [facility] 01/30/2020 01:20:00 PM EDT MEDENT ([facility]) Outpatient 08/16/2019 05:01:00 AM EDT [facility] Radiology Imaging Medications Medication Brand Name Start Date Product Form Dose Route Admi nistrative Instructions Pharmacy Instructions Status Indications Reaction Description Data Source(s) aripiprazole 2 MG Oral Tablet Aripiprazole 05/27/2020 12:00:00 AM EST ORAL active MEDENT ([facility]) 2 mg 05/27/2020 12:00:00 AM EST tablet 90 TAKE ONE TABLET BY MOUTH EVERY DAY TAKE ONE TABLET BY MOUTH EVERY DAY SOLD: 05/29/2020 [facility] Clonazepam 0.5 MG Oral Tablet Clonazepam 04/24/2020 12:00:00 AM EST ORAL active MEDENT ([facility]) 0.5 mg 04/24/2020 12:00:00 AM EST tablet 60 TAKE ONE TABLET BY MOUTH TWICE A DAY NEEDED FOR ANXIETY MAXIMUM DAILY DOSE = 2 TAKE ONE TABLET BY MOUTH TWICE A DAY NEEDED FOR ANXIETY MAXIMUM DAILY DOSE = 2 SOLD: 04/24/2020 [facility] Prednisone 20 MG Oral Tablet Prednisone 04/14/2020 12:00:00 AM EST active MEDENT ([facility]) 20 mg 04/14/2020 12:00:00 AM EST tablet [...] 02/29/2020 12:00:00 AM EDT ORAL completed MEDENT ([facility]) 24 HR Bupropion Hydrochloride 150 MG Extended [...] 12:00:00 AM EDT ORAL a ctive MEDENT ([facility]) No Active Medications 01/30/2020 12:00:00 AM EDT completed MEDENT ([facility]) Insurance Providers Payer name Policy type / Coverage type Policy ID Covered democrat ID Covered democrat's relationship to goldberg Policy Goldberg Plan Information [facility] [id number] SP [id number] SELF PAY ONLY [id number] SP [id number] [facility] B [id number] S [id number] [facility] O [id number] S [id number] SELF PAY PMA MANAGEMENT [facility] [id number] SP [id number] PMA MANAGEMENT [facility] O [id number] S [id number] [facility] [id number] [facility] E[facility]IRE JOHN DIV [id number] [place] Plan Commercial [id number] Family Dependent [id number] [employer] OUTPATIENT CLAIM [id number] [facility] [id number] [facility] [place] Commercial [id number] Family Depende nt [id number] [place] Plan Commercial [id number] Family Dependent [id number] [facility]MPIRE ([facility]) O [id number] O [id number] [facility] O [id number] O [id number] [place] Plan Commercial [id number] Family Dependent [id number] [place] Plan Commercial [id number] Family Dependent [id number] [facility] [id number] BCBS EMPIRE JOHN DIV [id number] [place] Plan Commercial [id number] Family Dependent [id number] [place] Plan Commercial [id number] Family Dependent [id number] [place] Plan Commercial [id number] Family Dependent [id number] [place] Plan Commercial [id number] Family Dependent [id number] [place] Plan Commercial [id number] Family Dependent [id number] [place] Plan Commercial Family Dependent [facility]/P [id number] 01 [id number] [facility] O [id number] S [id number] Results ID Date Data Source [id number] 04/14/2020 12:00:00 AM EST [facility] Name Value Range Interpretation Code Description Data Cristina rce(s) Supporting Document(s) SARS coronavirus 2 Ag [facility] This lab was ordered by [facility] and [facility] ID Date Data Source [id number] 04/01/2020 12:00:00 AM EST [facility] Name Value Range Interpretation Code Description Data Cristina rce(s) Supporting Document(s) SARS-CoV2 Rapid Antigen [facility] This lab was ordered by [facility] and reported by [facility]. ID Date Data Source [id number] 02/28/2020 12:00:00 AM EDT [facility] Imaging Rosina Briones DO Patient Name: DANIEL [id number] Date of : 1980 1 Date of Exam:02/28/2020LITTLE Carter [id number]#: Fax: [phone] EXAM: MAMMO DIAG INC CAD [...] this percentage could increase or decrease. Currently, theNational Comprehensive Cancer Network and [place] Cancer Society recommendadjunctive breast MRI screening starting [...] was read with the assistance of Franky [employer], an FDAapproved computer aided detection system for [...] rce(s) Supporting Document(s) ID Date Data Source [id number] 02/28/2020 12:00:00 AM EDT [facility] Imaging Rosina Briones DO Patient Name: DANIEL [id number] Date of : 1980 1 Date of Exam:02/28/2020LITTLE Carter [id number]#: Fax: [phone] EXAM: MAMMO DIAG INC CAD [...] this percentage could increase or decrease. Currently, the[facility] Comprehensive Cancer Network and [place] Cancer Society recommendadjunctive breast MRI screening starting [...] read with the assistance of Franky [employer], an FDAapproved computer aided detection system for [...] co mpleted Patient has never smoked MEDENT ([facility]) Smoking 04/14/2020 12:00:00 AM EST Patient has never smoked co mpleted Patient has never smoked MEDENT ([facility], [facility]) Vital Signs ID Date Data Source UNK Name Value Range Interpretation Code Description Data Source(s) [place] body weight 100 [lb_av] 100 [lb_av] MEDEN T ([facility]) Oxygen saturation in Arterial blood by Pulse oximetry 99 % 99 % MEDENT ([facility]) Body temperature 99.5 [degF] 99.5 [degF] MEDENT ([facility]) Respiratory rate 16 /min 16 /min MEDENT ( [facility] Heart rate 78 /min 78 /min MEDENT ([facility]) Body mass index (BMI) [Ratio] 26.2 kg/m2 26.2 k g/m2 [facility] Body weight 134.00 [lb_av] 134.00 [lb_av] MEDEN T ([facility]) Body height 60 [in_i] 60 [in_i] MEDENT ([facility]) 5'0" Diastolic blood pressure 78 mm[Hg] 78 mm[Hg] MEDENT ([facility]) Systolic blood pressure 112 mm[Hg] 112 mm[Hg] [facility] [place] body weight 100 [lb_av] 100 [lb_av] MEDEN T ([facility]) Oxygen saturation in Arterial blood by Pulse oximetry 99 % 99 % MEDENT ([facility]) Body temperature 98.2 [degF] 98.2 [degF] MEDENT ([facility]) Respiratory rate 187 /min 187 /min MEDENT ( [facility] Heart rate 90 /min 90 /min MEDENT ([facility]) Body mass index (BMI) [Ratio] 27.6 kg/m2 27.6 k g/m2 MEDENT ([facility]) Body weight 141.38 [lb_av] 141.38 [lb_av] MEDEN T ([facility]) Body height 60 [in_i] 60 [in_i] MEDENT ([facility]) 5'0" Diastolic blood pressure 70 mm[Hg] 70 mm[Hg] MEDENT ([facility]) Systolic blood pressure 118 mm[Hg] 118 mm[Hg] [facility] Body mass index (BMI) [Ratio] 30.3 kg/m2 30.3 k g/m2 MEDENT ([facility], [facility]) Body height 59 [in_i] 59 [in_i] MEDENT ([facility], [facility]) 4'11" Body weight 150.00 [lb_av] 150.00 [lb_av] MEDEN T ([facility], [facility]) Body temperature 98.4 [degF] 98.4 [degF] MEDENT ([facility], [facility]) Oxygen saturation in Arterial blood by Pulse oximetry 95 % 95 % MEDENT ([facility], [facility]) Respiratory rate 18 /min 18 /min MEDENT ( [facility], [facility]) Heart rate 72 /min 72 /min MEDENT ([facility], [facility]) Diastolic blood pressure 80 mm[Hg] 80 mm[Hg] [facility], [facility]) Systolic blood pressure 112 mm[Hg] 112 mm[Hg] M NIRAJ ([facility], [facility]) [place] body weight 100 [lb_av] 100 [lb_av] MEDEN T ([facility]) Oxygen saturation in Arterial blood by Pulse oximetry 100 % 100 % MEDENT ([facility]) Body temperature 97.7 [degF] 97.7 [degF] MEDENT ([facility]) Respiratory rate 16 /min 16 /min MEDENT ( [facility] Heart rate 90 /min 90 /min MEDENT ([facility]) Body mass index (BMI) [Ratio] 28.8 kg/m2 28.8 k g/m2 MEDENT ([facility]) Body weight 147.38 [lb_av] 147.38 [lb_av] MEDEN T ([facility]) Body height 60 [in_i] 60 [in_i] MEDENT ([facility]) 5'0" Diastolic blood pressure 70 mm[Hg] 70 mm[Hg] MEDENT ([facility]) Systolic blood pressure 115 mm[Hg] 115 mm[Hg] [facility] [place] body weight 100 [lb_av] 100 [lb_av] MEDEN T ([facility]) Oxygen saturation in Arterial blood by Pulse oximetry 97 % 97 % MEDENT ([facility]) Body temperature 97.5 [degF] 97.5 [degF] MEDENT ([facility]) Heart rate 78 /min 78 /min MEDENT ([facility]) Body mass index (BMI) [Ratio] 29.5 kg/m2 29.5 k g/m2 MEDENT ([facility]) Body weight 151.25 [lb_av] 151.25 [lb_av] MEDEN T ([facility]) Body height 60 [in_i] 60 [in_i] MEDENT ([facility]) 5'0" Diastolic blood pressure 80 mm[Hg] 80 mm[Hg] MEDENT ([facility]) Systolic blood pressure 118 mm[Hg] 118 mm[Hg] M NIRAJ ([facility]) Body mass index (BMI) [Ratio] 30.0 kg/m2 30.0 k g/m2 [facility] ([facility] Body weight 153.50 [lb_av] 153.50 [lb_av] ERAEN T ([facility]) Body height 60 [in_i] 60 [in_i] [place] ([facility]) 5'0" Diastolic blood pressure 86 mm[Hg] 86 mm[Hg] [place] ([facility]) Systolic blood pressure 132 mm[Hg] 132 mm[Hg] M NIRAJ ([facility]) [place] body weight 100 [lb_av] 100 [lb_av] ERAEN T ([facility]) Oxygen saturation in Arterial blood by Pulse oximetry 97 % 97 % [facility] Body temperature 97.7 [degF] 97.7 [degF] [facility] ([facility]) Respiratory rate 16 /min 16 /min [facility] ( [facility] Heart rate 85 /min 85 /min [facility] ([facility])
[2020-07-03 07:45] LABS: BASO % 0.6 % (0.0-1.0); EOS % 0.6 % (0.0-3.0); HEMATOCRIT 38.3 % (36.0-47.0); HEMOGLOBIN 12.7 g/dl (12.0-15.5); LYMPH % 19.1 % (24.0-44.0); MEAN CORPUSCULAR HEMOGLOBIN 30.5 pg (27.0-33.0); MEAN CORPUSCULAR HGB CONC 33.2 g/dl (32.0-36.5); MEAN CORPUSCULAR VOLUME 92.1 fl (80.0-96.0); MONO # 0.3 10^3/uL (0.0-0.8); MONO % 5.5 % (2.0-8.0); NEUTROPHILS # 3.8 10^3/uL (1.5-8.5); PLATELET COUNT, AUTOMATED 210 10^3/uL (150-450); RED BLOOD COUNT 4.16 10^6/uL (4.00-5.40); WHITE BLOOD COUNT 5.1 10^3/uL (4.0-10.0)
[2020-07-03 08:07] LABS: ALBUMIN 3.9 GM/DL (3.2-5.2); BILIRUBIN,DIRECT 0.2 MG/DL (0.0-0.2); BILIRUBIN,TOTAL 0.4 MG/DL (0.2-1.0); TOTAL PROTEIN 6.6 GM/DL (6.4-8.2)
[2020-07-03] MEDS ORDERED: NS 500 ML IV ONE (08:30)
--- NOTE | 2020-07-03 09:03 | REP ---
INDICATION: L flank pain, hematuria, h/o kidney stones. COMPARISON: 05/16/2017 TECHNIQUE: Renal stone protocol with coronal and sagittal reconstructions. FINDINGS: CT abdomen lung bases are clear. The heart is not enlarged. There is no pericardial thickening or effusion. No hiatal hernia. The liver, spleen, gallbladder, pancreas and adrenal glands are normal. Abdominal portion of colon and small bowel loops are unremarkable. No ventral or umbilical hernia. Multiple punctate 2-3 mm calcifications are seen in the right kidney without obstruction. No solid mass or cyst. No hydroureter on the right side. Left kidney shows no definite stone. There is an extrarenal pelvis but no perinephric edema. On image 114 there is a left distal ureteral stone just above the UVJ. The bladder is nearly empty. There are a few pelvic phleboliths. Bone windows show sclerotic bone island posteriorly in the L2 vertebral body. The remainder of lumbar, thoracic vertebral bodies, posterior elements and visualized ribs unremarkable. CT pelvis: Sacrum, SI joints, pelvis and hips show no acute bony finding. The distal left colon sigmoid and rectum are unremarkable. Small bowel loops in the pelvis were unremarkable cecum and appendix normal. No ventral or inguinal hernia nor inguinal adenopathy. No pelvic free fluid or lymphadenopathy. Some minimal hydroureter on the left with a distal ureteral 2 mm stone near the UVJ on image 114. No other significant finding. IMPRESSION: A 2 mm stone in the distal left ureter just above the UVJ with mild hydroureter common extrarenal pelvis and no intrarenal calculi on the left. Multiple 2-3 mm nonobstructing calculi in the right kidney without hydronephrosis or hydroureter. Otherwise negative CT abdomen and pelvis. <Electronically signed by Javan Correia > 07/03/20 0900
[2020-07-03] MEDS ORDERED: KETO10TAB PO (09:17)
[2020-07-03] MEDS ORDERED: FLOM0.4C39 PO (09:17)
[2020-07-03] MEDS ORDERED: ONDA4TAB6 PO (09:19)
[2020-07-03 09:27] VITALS: BP 124/83
== END 2020-07-03 09:28 | disposition home or self-care (01) ==
LOC: M ED 06:25
DX: N20.2 Calculus of kidney with calculus of ureter (principal); F33.9 Major depressive disorder, recurrent, unspecified; F41.9 Anxiety disorder, unspecified; Z79.899 Other long term (current) drug therapy

== ENCOUNTER → 2021-01-28 | Outpatient (CLI) | payer OTHER ==
[~2021-01-28] MED LIST changes: +ARIP1TAB4 PO; +BACTDSTA PO; +KETO10TAB PO; +ONDA4TAB6 PO; -SULF1TAB93 PO
[2021-01-28 17:11] LABS: HIV 1&2 SCREEN CENTAUR NEGATIVE (NEGATIVE)
[2021-01-28 17:13] LABS: GC DNA AMPLIFICATION NEGATIVE (NEGATIVE)
== END ==
LOC: M PLALAB 13:41
PROVIDERS: ATTEND Physician Assistant
DX: Z11.3 Encounter for screening for infections with a predominantly sexual mode of transmission (principal)

== ENCOUNTER → 2021-08-27 | Outpatient (CLI) | payer BC ==
[2021-08-27 10:53] LABS: BASO % 0.5 % (0.0-1.0); EOS # 0.1 10^3/uL (0.0-0.5); EOS % 2.1 % (0.0-3.0); HEMATOCRIT 39.7 % (36.0-47.0); HEMOGLOBIN 13.5 g/dl (12.0-15.5); LYMPH # 1.5 10^3/uL (1.5-5.0); LYMPH % 38.9 % (24.0-44.0); MEAN CORPUSCULAR HEMOGLOBIN 30.4 pg (27.0-33.0); MEAN CORPUSCULAR VOLUME 89.4 fl (80.0-96.0); MONO # 0.3 10^3/uL (0.0-0.8); MONO % 8.5 % (2.0-8.0); NEUTROPHILS # 1.9 10^3/uL (1.5-8.5); NEUTROPHILS % 49.5 % (36.0-66.0); PLATELET COUNT, AUTOMATED 224 10^3/uL (150-450); RED BLOOD COUNT 4.44 10^6/uL (4.00-5.40); WHITE BLOOD COUNT 3.9 10^3/uL (4.0-10.0)
[2021-08-27 11:34] LABS: ALBUMIN 3.4 GM/DL (3.2-5.2); ALT/SGPT 21 U/L (12-78); BILIRUBIN,TOTAL 0.4 MG/DL (0.2-1.0); BLOOD UREA NITROGEN 9 MG/DL (7-18); CALCIUM LEVEL 8.8 MG/DL (8.5-10.1); CARBON DIOXIDE LEVEL 29 MEQ/L (21-32); CHLORIDE LEVEL 106 MEQ/L (98-107); CHOLESTEROL LEVEL 168 MG/DL (<200); CREATININE FOR GFR 0.78 MG/DL (0.55-1.30); FERRITIN 69 NG/ML (8-252); FREE T4 1.05 NG/DL (0.76-1.46); GLOMERULAR FILTRATION RATE > 60.0 (>60); GLUCOSE, FASTING 81 MG/DL (70-100); HDL CHOLESTEROL 70 MG/DL (>40); IRON (FE) 109 UG/DL (50-170); LDL CHOLESTEROL 83 MG/DL (<100); NON-HDL-C 98 MG/DL; PERCENT SATURATION 24.3 % (13.2-45.0); POTASSIUM SERUM 4.3 MEQ/L (3.5-5.1); SODIUM LEVEL 139 MEQ/L (136-145); TOTAL 25(OH) VITAMIN D 27.5 NG/ML (30.0-100.0); TOTAL IRON BINDING CAPACITY 448 UG/DL (250-450); TOTAL PROTEIN 6.8 GM/DL (6.4-8.2); TRIGLYCERIDES LEVEL 76 MG/DL (<150)
== END ==
LOC: M PLALAB 08:29
PROVIDERS: ATTEND Family Medicine
DX: R53.83 Other fatigue (principal); Z13.220 Encounter for screening for lipoid disorders; Z13.29 Encounter for screening for other suspected endocrine disorder; Z13.0 Encounter for screening for diseases of the blood and blood-forming organs and certain disorders involving the immune mechanism

== ENCOUNTER → 2021-09-04 | Outpatient (CLI) | payer BC ==
[2021-09-04 13:12] LABS: BASO % 0.5 % (0.0-1.0); EOS # 0.1 10^3/uL (0.0-0.5); EOS % 2.5 % (0.0-3.0); HEMATOCRIT 39.9 % (36.0-47.0); HEMOGLOBIN 13.2 g/dl (12.0-15.5); LYMPH # 1.4 10^3/uL (1.5-5.0); LYMPH % 32.6 % (24.0-44.0); MEAN CORPUSCULAR HEMOGLOBIN 30.9 pg (27.0-33.0); MEAN CORPUSCULAR HGB CONC 33.1 g/dl (32.0-36.5); MEAN CORPUSCULAR VOLUME 93.4 fl (80.0-96.0); MONO # 0.3 10^3/uL (0.0-0.8); MONO % 7.8 % (2.0-8.0); NEUTROPHILS # 2.4 10^3/uL (1.5-8.5); NEUTROPHILS % 56.1 % (36.0-66.0); PLATELET COUNT, AUTOMATED 224 10^3/uL (150-450); RED BLOOD COUNT 4.27 10^6/uL (4.00-5.40); WHITE BLOOD COUNT 4.4 10^3/uL (4.0-10.0)
[2021-09-04 13:39] LABS: C REACTIVE PROTEIN QUANTITATIV 0.31 MG/DL (0.00-0.30); URIC ACID 3.1 MG/DL (2.6-6.0)
[2021-09-04 13:45] LABS: ERYTHROCYTE SEDIMENTATION RATE 10 mm/hr (0-20)
== END ==
LOC: M PLALAB 11:40
PROVIDERS: ATTEND Nurse Practitioner Adult Health
DX: M10.9 Gout, unspecified (principal)

== ENCOUNTER → 2022-06-09 | Outpatient (REF) | payer BC | LOC: M LAB REF 16:54 | PROVIDERS: ATTEND Family Medicine | DX: R30.0 Dysuria (principal) ==

== ENCOUNTER → 2022-06-16 | Outpatient (CLI) | payer BC ==
[2022-06-16 18:03] LABS: ALBUMIN 4.1 G/DL (3.2-5.2); ALKALINE PHOSPHATASE 52 U/L (46-116); ALT/SGPT 24 U/L (7.0-40); AST/SGOT 26 U/L (<34); BILIRUBIN,TOTAL 0.6 MG/DL (0.3-1.2); BLOOD UREA NITROGEN 8 MG/DL (9-23); CALCIUM LEVEL 9.3 MG/DL (8.5-10.1); CARBON DIOXIDE LEVEL 31 MMOL/L (20-31); CHLORIDE LEVEL 98 MMOL/L (98-107); CREATININE FOR GFR 0.72 MG/DL (0.55-1.30); GLOMERULAR FILTRATION RATE > 60.0 (>60); GLUCOSE, FASTING 76 MG/DL (60-100); POTASSIUM SERUM 4.4 MMOL/L (3.5-5.1); SODIUM LEVEL 137 MMOL/L (136-145); THYROID STIMULATING HORMONE 3.655 uIU/ML (0.55-4.78); TOTAL PROTEIN 7.2 G/DL (5.7-8.2)
[2022-06-16 20:26] LABS: HEMOGLOBIN A1c 4.3 % (4.0-6.0)
== END ==
LOC: M PLALAB 15:45
PROVIDERS: ATTEND Nurse Practitioner Adult Health
DX: Z13.29 Encounter for screening for other suspected endocrine disorder (principal)

== ENCOUNTER → 2024-07-17 | Outpatient (CLI) | payer OTHER ==
[~2024-07-17] MED LIST changes: +FLUO-365 PO; -FLUO20CA22 PO; +ONDA-282 PO; -ONDA4TAB6 PO; -OXYB5TAB10 PO; +OXYB5TAB14 PO
== END ==
LOC: M OUTALCOH 07:46
PROVIDERS: ATTEND Psychiatry & Neurology Psychiatry
DX: Z03.89 Encounter for observation for other suspected diseases and conditions ruled out (principal)